=== PATIENT | female | born 1940 | race Caucasian/White ===

== ENCOUNTER → 2021-02-24 10:05 | Outpatient (CLI) | payer MEDICARE, SELFPAY ==
--- NOTE | ~2021-02-24 | XR_ITS ---
EXAMINATION: XR chest 2V DATE: 02/24/2021 10:19 INDICATION: Cough TECHNIQUE: PA and lateral views of the chest were obtained. 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 No focal airspace opacities, pulmonary ed chelsea, pleural effusion or pneumothorax. The cardiomediastinal silhouette is normal. Mild thoracic spon dylosis. IMPRESSION: 1. No acute cardiopulmonary disease. Reviewed, dictated and finalized at location A.
== END ==
PROVIDERS: PCP Family Medicine; Visit Provider Nurse Practitioner Family
DX: M47.814 Spondylosis without myelopathy or radiculopathy, thoracic region (principal); R05.9 Cough, unspecified
CPT/HCPCS: 71046

== ENCOUNTER 2021-05-08 20:15 | Emergency (ER) | payer MEDICARE, SELFPAY ==
--- NOTE | ~2021-05-08 | XR_ITS ---
EXAMINATION: XR chest 2V DATE: 05/09/2021 00:30 INDICATION: Cough. TECHNIQUE: Frontal and lateral views of the chest were obtained. COMPARISON: Chest 2 views 02/24/2021, chest CT 04/19/2014 FINDINGS: Again seen is eventration of anterior right hemidiaphragm. There are airspace opacities in the mid and lower lung zones. No pleural effusion or pneumothorax. The heart size is normal. IMPRESSION: 1. Airspace opacities in the mid and lower lung zones, consistent with atelectasis versus pneumonia. Reviewed, dictated and finalized at location A. VERY COACH IMPRESSION: 1. Airspace opacities in the mid and lower lung zones, consistent with atelecta sis versus pneumonia.
--- NOTE | ~2021-05-08 | CT_ITS ---
EXAMINATION: CT brain wo con DATE: 05/09/2021 00:25 INDICATION: Dizziness. TECHNIQUE: Computed tomography (CT) of the head was performed without intravenous contrast. The mA wa s adjusted according to patient size. Iterative reconstruction technique was employed. The dose-lengt h product was 756.67 mGy-cm. COMPARISON: Head CT 09/16/2017 FINDINGS: There are scattered areas of low attenuation in the cerebral white matter. There is no intr acranial hemorrhage, acute infarction, or abnormal intracranial mass lesion. The ventricles are odette l in size. There are likely changes of ocular lens replacement surgeries. There is mucosal thickening in the paranasal sinuses with thickening and sclerosis of the sinus morales, consistent with chronic s inusitis. There are changes of uncinectomies and ethmoidectomies. The mastoid air cells are normal. T here are periapical lucencies at the central maxillary incisors. IMPRESSION: 1. Worsened moderate nonspecific cerebral white matter disease, which likely represents chronic small vessel ischemic disease. 2. Chronic sinusitis. 3. Dental disease. Reviewed, dictated and finalized at location A. AGE HANDLING SUPERVISOR IMPRESSION: 1. Worsened moderate nonspecific cerebral white matter disease, which likely re presents chronic small vessel ischemic disease. 2. Chronic sinusitis. 3. Dental disease.
[2021-05-08 20:19] VITALS: BP 141/81; PULSE 96; RESP 17; TEMP 36.4; O2SAT 94
--- NOTE | 2021-05-08 20:21 | PC.NURSE ---
Kacy, pt [id number], would like to be called when pt gets back to a room. [phone].
[2021-05-08 22:56] VITALS: BP 145/67; PULSE 95; RESP 22; TEMP 36.3; O2SAT 92
--- NOTE | 2021-05-09 00:10 | ECG_ITS ---
Measurements Intervals [place] Rate: 78 P: 145 SC: 180 QRS: 220 QRSD: 169 T: 55 QT: 438 QTc: 500 Interpretive Statements SINUS RHYTHM ARM LEADS REVERSED LEFT ATRIAL ENLARGEMENT LEFT BUNDLE BRANCH BLOCK BASELINE ARTIFACT- I, II, III, AVL, AVF, V1-V6 ABNORMAL ECG Electronically Signed On 05-09-2021 6:21:09 PRINTER SLOTTER HELPER by Venkat Moncada D.O.
--- NOTE | 2021-05-09 00:14 | ED.WEAKNESS ---
HPI - Weakness General Chief complaint: Weakness Stated complaint: weakness, cough, dizziness Time Seen by Provider: 05/09/21 00:08 Source: patient Mode of arrival: ambulatory Limitations: no limitations History of Present Illness HPI Narrative: Patient is an 80-year-old female complaining of generalized weakness accompanied by nausea vomiting for the past 2 weeks. Patient also complaining of cough, productive, clear sputum for the past 2 months. Patient also states I think I have a UTI , having dysuria for the past week. Patient denies any chest pain, shortness of breath, abdominal pain, diarrhea, fever or chills. Related Data Allergies Allergy/AdvReac Type Severity Reaction Status Date / Time clavulanic acid Allergy Severe SAVANNAH Verified 05/08/21 20:23 MEGAN SYNDROME amoxicillin Allergy Unknown unk Verified 05/08/21 20:23 ampicillin Allergy Unknown unk Verified 05/08/21 20:23 Cephalosporins Allergy Unknown unk Verified 05/08/21 20:23 clarithromycin Allergy Unknown unk Verified 05/08/21 20:23 levofloxacin Allergy Unknown unk Verified 05/08/21 20:23 Penicillins Allergy Unknown unk Verified 05/08/21 20:23 AMOXICILLIN TRIHYDRATE Allergy Severe SAVANNAH Uncoded 02/23/21 13:10 MEGAN SYNDROME POTASSIUM CLAVULANATE Allergy Unknown ukn Uncoded 02/23/21 13:10 Review of Systems Review of Systems: All systems reviewed & are unremarkable except as noted in HPI and below Constitutional: Constitutional: Denies body ache(s), Denies chills, Denies excessive sweating, Denies fatigue, Denies fever(s), Denies headache(s), Denies lethargy, Denies malaise and Denies weight loss Eyes: Eyes: Denies blurry vision, Denies change in vision and Denies loss of vision ENT: Denies dizziness, Denies ear discharge, Denies headache(s), Denies lip swelling, Denies epistaxis, Denies nasal congestion, Denies neck pain, Denies throat swelling and Denies tongue swelling Cardiovascular: Cardiovascular: Denies chest pain, Denies chest pain at rest, Denies chest pain with activity, Denies diaphoresis, Denies rapid heart rate, Denies edema, Denies irregular heart rhythm, Denies lightheadedness, Denies palpitations, Denies dyspnea and Denies dyspnea on exertion Respiratory: Respiratory: Denies chest congestion, Denies hemoptysis, Denies dyspnea and Denies dyspnea on exertion Gastrointestinal: Gastrointestinal: Denies abdominal pain, Denies melena, Denies hematochezia, Denies diarrhea and Denies hematemesis Musculoskeletal: Musculoskeletal: Denies abnormal gait, Denies deformity, Denies joint swelling, Denies limited range of motion, Denies neck pain and Denies numbness Neurologic: Denies Abnormal speech present, Denies abnormal gait, Denies confusion, Denies dizziness, Denies headache(s), Denies focal weakness, Denies loss of vision, Denies numbness, Denies Other visual disturbances and Denies Sensory deficit (Neuro) Psychiatric: Psychiatric: Denies confusion, Denies depression, Denies auditory hallucinations, Denies homicidal ideation and Denies suicidal ideation Endocrine: Endocrine: Denies cold intolerance, Denies excessive sweating, Denies fatigue, Denies heat intolerance and Denies palpitations Hematologic/Lymphatic: Hematologic/Lymphatic: Denies easy bleeding and Denies easy bruising Allergic/Immunologic: Allergic/Immunologic: Denies lip swelling, Denies throat swelling and Denies tongue swelling [facility] Family History Family History Mother Cerebrovascular accident Father Family history of lung cancer Sibling Acute myocardial infarction Social History Social History Smoking status: Never smoker Second hand tobacco smoke exposure: No Alcohol intake: never Substance use: never Substance use type: does not use Gender identity (if verbalized by the patient): Female Comments Past medical history: Asthma, hypertension
[2021-05-09 00:32] VITALS: BP 141/75; PULSE 83; RESP 18; O2SAT 94
[2021-05-09 00:33] VITALS: PULSE 81
[2021-05-09] MEDS: LACTATED RINGERS 1,000 ML 999 ML IV CONT (00:47)
[2021-05-09 00:48] LABS: Basophils Percent Auto 0.2 % (0.2-1.2); Hematocrit 46.5 % (37.0-47.0); Hemoglobin 14.7 g/dL (12.0-15.0); Immature Granulocyte Absolute 0.04 K/mm3 (0.00-0.031); Immature Granulocyte Percent A 0.4 % (0-0.5); Lymphocytes Absolute Auto 1.57 K/mm3 (0.9-3.2); Lymphocytes Percent Auto 15.7 % (18.3-44.2); Mean Corpuscular HGB Conc 31.6 g/dl (32-36); Mean Corpuscular Volume 91.7 fl (80-100); Monocytes Absolute Auto 1.1 K/mm3 (0.1-0.6); Monocytes Percent Auto 10.5 % (2.6-8.5); Neutrophils Absolute Auto 7.3 K/mm3 (1.3-6.7); Neutrophils Percent Auto 73.2 % (45.5-73.1); Platelet Count Result 170 k/mm3 (150-375); Red Blood Count 5.07 M/mm3 (4.2-5.4); Red Cell Distribution Width 14.4 % (11.5-14.5)
[2021-05-09] MEDS: ONDANSETRON INJ 4 MG/2 ML VIAL IV PUSH (00:48)
[2021-05-09 01:08] LABS: Add Urine Microscopic? YES; Appearance Urine Cloudy (Clear); Bacteria Urine 2+ /hpf; Bilirubin Urine Negative (Negative); Color Urine Yellow (Yellow); Glucose Urine UA Negative (Negative); Ketones Urine Negative (Negative); Leukocyte Esterase Ur 3+ LEU/UL (Negative); Mucus Urine Heavy /lpf; Nitrate Urine Positive (Negative); Protein Urine 1+ mg/dL (Negative); Specific Grav Ur 1.014 (1.001-1.035); Squamous Epithelial Cell Urine Moderate /hpf (Few); Urobilinogen Urine Negative mg/dL (<2.0); WBC Urine 51-75 /hpf
[2021-05-09 01:09] LABS: Blood Urine Negative (Negative)
[2021-05-09 01:13] LABS: Alanine Aminotransferase 20 U/L (4-35); Albumin Level 4.1 g/dL (3.5-5.1); Alkaline Phosphatase 96 U/L (38-126); Anion Gap 11 mmol/L (8-16); Aspartate Amino Transferase 38 U/L (14-36); Bilirubin,Total 0.9 mg/dL (0.2-1.3); Blood Urea Nitrogen 24 mg/dL (7-17); Calcium 8.6 mg/dL (8.4-10.2); Carbon Dioxide 23 mmol/L (22-30); Chloride 103 mmol/L (98-107); Estimated CRCL calculation 49 ml/min; Estimated Glomerular Filt Rate 60; Glucose 128 mg/dL (65-110); Potassium 4.2 mmol/L (3.4-5.0); Sodium 137 mmol/L (137-145)
[2021-05-09 01:24] LABS: Troponin I 0.015 ng/mL (0.000-0.034)
[2021-05-09 01:42] VITALS: BP 145/77; PULSE 75; RESP 24; O2SAT 92
[2021-05-09 02:58] VITALS: BP 140/75; PULSE 72; RESP 18; O2SAT 94
== END 2021-05-09 02:58 | disposition home or self-care (01) ==
PROVIDERS: Emergency Provider Emergency Medicine; PCP Family Medicine
DX: N39.0 Urinary tract infection, site not specified (principal); R53.1 Weakness; J45.909 Unspecified asthma, uncomplicated; I10 Essential (primary) hypertension; I44.7 Left bundle-branch block, unspecified; R94.31 Abnormal electrocardiogram [ECG] [EKG]
CPT/HCPCS: 36415; 70450; 71046; 80053; 81001; 84484; 85025; 87086; 87088; 93005; 96361; 96365; 96375; 99284; J0696; J2405; J7120

== ENCOUNTER 2022-02-13 10:30 | Observation (INO) | payer MEDICARE, SELFPAY ==
[2022-02-13] VITALS (30 sets, daily range): BP systolic 119–155; BP diastolic 60–103; PULSE 73–113; RESP 13–25; TEMP 36.3–37.3; O2SAT 91–97; BMI 31.3
--- NOTE | ~2022-02-13 | CT_ITS ---
EXAMINATION: CT brain wo con INDICATION: Vertigo COMPARISON: 05/09/2021 TECHNIQUE: Standard unenhanced head CT. The dose-length product (DLP) was 605.33 mGy-cm. The mA was a djusted according to patient size. Iterative reconstruction technique was employed. FINDINGS: There is no acute intraparenchymal hemorrhage. No evidence of mass lesion. No evidence of a cute infarction. There is mild periventricular and subcortical hypodensity probably related to small vessel ischemic disease. There is mild prominence of the sulci and ventricles related to cerebral atr ophy. Intracranial calcified cerebral atherosclerosis is noted. There are no extra-axial collections. There is no mass effect or midline shift. Changes in the globes are likely from ocular lens surgery. There is mild mucosal thickening of the paranasal sinuses. IMPRESSION: 1. No acute intracranial abnormality. 2. Age related findings. Reviewed, dictated and finalized at location A.
[2022-02-13 11:01] LABS: Basophils Percent Auto 0.2 % (0.2-1.2); Eosinophils Absolute Auto 0.1 K/mm3 (0-0.3); Eosinophils Percent Auto 0.6 % (0-4.4); Hematocrit 49.9 % (37.0-47.0); Hemoglobin 15.8 g/dL (12.0-15.0); Immature Granulocyte Absolute 0.05 K/mm3 (0.00-0.031); Immature Granulocyte Percent A 0.4 % (0-0.5); Lymphocytes Absolute Auto 0.61 K/mm3 (0.9-3.2); Lymphocytes Percent Auto 4.7 % (18.3-44.2); Mean Corpuscular HGB Conc 31.7 g/dl (32-36); Mean Corpuscular Hemoglobin 29.4 pg (26-34); Mean Corpuscular Volume 92.8 fl (80-100); Mean Platelet Volume 9.8 fl (7.4-10.4); Monocytes Percent Auto 7.8 % (2.6-8.5); Neutrophils Absolute Auto 11.1 K/mm3 (1.3-6.7); Neutrophils Percent Auto 86.3 % (45.5-73.1); Platelet Count Result 228 k/mm3 (150-375); Red Blood Count 5.38 M/mm3 (4.2-5.4); Red Cell Distribution Width 14.1 % (11.5-14.5); White Blood Count 12.9 K/mm3 (4.5-10.0)
[2022-02-13 11:24] LABS: Hypochromasia 1+ (NORMAL); Platelet Estimate Adequate (Adequate); Schistocytes None Seen (NORMAL)
[2022-02-13 11:25] LABS: Alanine Aminotransferase 29 U/L (6-35); Albumin Level 4.5 g/dL (3.5-5.1); Alkaline Phosphatase 117 U/L (38-126); Anion Gap 11 mmol/L (8-16); Aspartate Amino Transferase 46 U/L (14-36); Bilirubin,Total 1.5 mg/dL (0.2-1.3); Blood Urea Nitrogen 20 mg/dL (7-17); Calcium 9.5 mg/dL (8.4-10.2); Carbon Dioxide 23 mmol/L (22-30); Chloride 106 mmol/L (98-107); Estimated CRCL calculation 42 ml/min; Estimated Glomerular Filt Rate 48; Glucose 145 mg/dL (65-110); Lipase 97 U/L (23-300); Potassium 4.1 mmol/L (3.4-5.0); Sodium 140 mmol/L (137-145)
[2022-02-13 12:28] LABS: Add Urine Microscopic? YES; Appearance Urine Clear (Clear); Bilirubin Urine Negative (Negative); Blood Urine 1+ (Negative); Color Urine Yellow (Yellow); Glucose Urine UA Negative (Negative); Ketones Urine Negative (Negative); Leukocyte Esterase Ur 2+ LEU/UL (Negative); Mucus Urine Rare /lpf; Nitrate Urine Negative (Negative); Protein Urine Negative (Negative); Specific Grav Ur 1.012 (1.001-1.035); Squamous Epithelial Cell Urine Rare /hpf (Few); Urobilinogen Urine Negative mg/dL (<2.0); WBC Urine 31-50 /hpf
--- NOTE | 2022-02-13 12:45 | ED.DIZZY ---
HPI - Dizziness General Chief Complaint: Dizziness Stated Complaint: dizziness, n/v Time Seen by Provider: 02/13/22 11:47 History of Present Illness HPI Narrative: Patient is an 81-year-old female with a history of hypertension, hyperlipidemia, CAD presenting with generalized weakness. Patient states that for the last 6 days she has had constant nausea with intermittent vomiting. States that she has a history of vertigo but it has been increasingly severe over the last 5 days. Patient states that she has a history of recurrent UTIs and her primary care provider started her on antibiotics yesterday. Unfortunately, her symptoms have continued and patient states that she was unable to even stand. States that she is unable to walk at home due to this generalized weakness. Patient denies headache, vision changes, numbness or weakness, chest pain, shortness of breath, cough, abdominal pain, diarrhea, leg swelling. Related Data Allergies Allergy/AdvReac Type Severity Reaction Status Date / Time amoxicillin Allergy Severe TORRES Verified 02/13/22 13:04 MEGAN SYNDROME clavulanic acid Allergy Severe SAVANNAH Verified 02/13/22 10:35 MEGAN SYNDROME ampicillin Allergy Unknown unk Verified 02/13/22 10:35 Cephalosporins Allergy Unknown unk Verified 02/13/22 10:35 clarithromycin Allergy Unknown unk Verified 02/13/22 10:35 levofloxacin Allergy Unknown unk Verified 02/13/22 10:35 Penicillins Allergy Unknown unk Verified 02/13/22 10:35 Review of Systems Review of Systems: All systems reviewed & are unremarkable except as noted in HPI and below PMFSH Past Medical History Medical History (Updated 02/16/22 @ 19:34 by Lavern Patel MD) Blind left eye Depression with anxiety Diabetes Elevated blood pressure reading Essential hypertension Hx of long-term (current) use of anticoagulants Hx of Torres-Megan toxic epidermal necrolysis overlap syndrome Personal history of pulmonary embolism Surgical History Surgical History (Updated 02/13/22 @ 21:12 by Judith Joseph NP) H/O eye surgery H/O foot surgery History of carpal tunnel release History of injection of tarsal tunnel History of lung surgery History of partial hysterectomy Hx of cataract extraction Family History Family History Mother Cerebrovascular accident Father Family history of lung cancer Sibling Acute myocardial infarction Social History Social History (Updated 02/13/22 @ 21:14 by Judith Joseph NP) Social History: the patient has been for 60 years. She does not use any alcohol and does not smoke. She has 4 children. She retired from the [employer]. Her is the durable power finance attorney for healthcare. Code status full code. Smoking status: Never smoker Second hand tobacco smoke exposure: No Alcohol intake: never Substance use: never Substance use type: does not use Gender identity (if verbalized by the patient): Female Spiritual care concerns: No Exam Narrative: GENERAL: Well-appearing, well-nourished, and in no acute distress. HEAD: Normocephalic, atraumatic. EYES: PERRLA and EOMI. ENT: Nares clear, no rhinorrhea or epistaxis. Mucous membranes dry. NECK: Supple. CHEST: Clear to auscultation. No respiratory distress. HEART: Regular rate and rhythm. No murmur heard. Normal peripheral pulses. ABDOMEN: Soft, nontender, nondistended, normal active bowel sounds. EXTREMITIES: Normal range of motion. No edema. SKIN: Warm, dry, no rash. NEURO: No focal deficits. Alert and oriented x3. PSYCH: Normal mood and affect. Course Course Emergency Course: Patient is an 81-year-old female presenting with generalized weakness. On arrival, patient is tachycardic, otherwise vitals are within normal limits. Exam is remarkable for the above. Patient is dehydrated on labs. There is a leukocytosis. UA shows UTI. Patient is receivi
[2022-02-13] MEDS: ONDANSETRON INJ 4 MG/2 ML VIAL IV PUSH (13:21)
[2022-02-13] MEDS: SODIUM CHLORIDE 0.9% IV 1,000 ML 999 ML IV CONT (13:21)
[2022-02-13 14:06] LABS: SARS-CoV-2 RNA PCR Negative
--- NOTE | 2022-02-13 17:45 | PC.NURSE ---
patient complaining that she has been in the er for too long and that this RN is trying my patience . patient requesting to speak to a supervisor propellant charge loading. charge nurse sent in to speak with patient
--- NOTE | 2022-02-13 18:44 | ADMGEN ---
This patient, Gifty Garcia, was admitted to Medical Room 341-01. Patient/family oriented to hospital policies and general routines including ID bracelet, bed and alarms, visiting hours, pain management, procedures, bathroom and other care routines, personal items, smoking policy, room service/diet, and visiting hours. Information on how to activate the Rapid Response Team has been discussed. Patient/Family are encouraged to report perceived risks to care and to ask questions if they do not understand what they are told or what they should do.
[2022-02-13] MEDS: SODIUM CHLORIDE 0.9% IV 1,000 ML 125 ML IV CONT (18:52)
--- NOTE | 2022-02-13 21:04 | PM.IMHP ---
H&P: HPI History of Present Illness Date/Time: 02/13/22 21:04 Chief Complaint: dizziness with nausea and vomiting Narrative: this is a 81-year-old female patient who has a history of hypertension, hyperlipidemia and coronary artery disease. She presented to the emergency room with some generalized weakness. The patient stated that she has had frequent UTIs. She states over the last 60 she has had constant nausea with intermittent vomiting. The patient stated that she has a history of vertigo but it has been getting increasingly severe over the last 5 days. The patient had been started on Macrobid for her urinary tract infection yesterday. The patient stated that she became so weak that she could not even stand. 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 She has no chest pain or shortness of breath. No fever chills. Her white count was noted to be 12.9. H&H is 15.8 and 49.9. Patient's creatinine was noted to be 1.10 and earlier this year was normal. GFR is 48. Random glucose is 145. Total bilirubin 1.5 an AST is 46. The patient was found to be negative for COVID and was positive for urinary tract infection. The patient is being admitted to observation status on the date of service of 02/13/2022. Review of Systems Review of Systems: See HPI All systems reviewed & are unremarkable except as noted in HPI and below Constitutional: Constitutional: Reports as per HPI and Reports no additional constitutional complaints Eyes: Eyes: Reports as per HPI and Reports no additional eye complaints ENT: Reports system reviewed and no additional complaints, except as documented and Reports Normal hearing present Cardiovascular: Cardiovascular: Reports no additional cardiovascular complaints Respiratory: Respiratory: Reports no additional respiratory complaints and Reports no additional respiratory complaints Gastrointestinal: Gastrointestinal: Reports as per HPI and Reports no additional gastrointestinal complaints Musculoskeletal: Musculoskeletal: Reports no additional musculoskeletal complaints Integumentary/Breasts: Skin/Breast: Reports system reviewed and no additional complaints, except as docu and Reports as per HPI Neurologic: Reports system reviewed and no additional complaints, except as documented, Reports as per HPI and Reports Normal hearing present Psychiatric: Psychiatric: Reports no additional psychiatric complaints and Reports as per HPI Endocrine: Endocrine: Reports no additional endocrine complaints Hematologic/Lymphatic: Hematologic/Lymphatic: Reports no additional hematologic/lymphatic complaints Allergic/Immunologic: Allergic/Immunologic: Reports no additional allergic/immunologic complaints PMFSH Past Medical History Medical History (Updated 02/13/22 @ 21:19 by Judith Joseph NP) Blind left eye Depression with anxiety Diabetes Elevated blood pressure reading Essential hypertension Hx of long-term (current) use of anticoagulants Hx of Kc-Kevin toxic epidermal necrolysis overlap syndrome Personal history of pulmonary embolism Surgical History Surgical History (Updated 02/13/22 @ 21:12 by Judith Joseph NP) H/O eye surgery H/O foot surgery History of carpal tunnel release History of injection of tarsal tunnel History of lung surgery History of partial hysterectomy Hx of cataract extraction Family History Family History Mother Cerebrovascular accident Father Family history of lung cancer Sibling Acute myocardial infarction Social History Social History (Updated 02/13/22 @ 21:14 by Judith Joseph NP) Social History: the patient has been for 60 years. She does not use any alcohol and does not smoke. She has 4 children. She retired from the [employer]. Her is the durable power city attorney for healthcare. Code status full code. Smoking s
[2022-02-14 04:54] VITALS: BP 129/80; PULSE 67; RESP 18; TEMP 36.2; O2SAT 97
[2022-02-14 06:07] LABS: Basophils Percent Auto 0.2 % (0.2-1.2); Eosinophils Absolute Auto 0.1 K/mm3 (0-0.3); Hematocrit 44.4 % (37.0-47.0); Hemoglobin 13.6 g/dL (12.0-15.0); Immature Granulocyte Absolute 0.01 K/mm3 (0.00-0.031); Immature Granulocyte Percent A 0.2 % (0-0.5); Lymphocytes Absolute Auto 0.97 K/mm3 (0.9-3.2); Lymphocytes Percent Auto 17.9 % (18.3-44.2); Mean Corpuscular HGB Conc 30.6 g/dl (32-36); Mean Corpuscular Hemoglobin 29.4 pg (26-34); Mean Corpuscular Volume 96.1 fl (80-100); Mean Platelet Volume 10.2 fl (7.4-10.4); Monocytes Absolute Auto 0.7 K/mm3 (0.1-0.6); Monocytes Percent Auto 12.4 % (2.6-8.5); Neutrophils Absolute Auto 3.6 K/mm3 (1.3-6.7); Neutrophils Percent Auto 67.3 % (45.5-73.1); Platelet Count Result 179 k/mm3 (150-375); Red Blood Count 4.62 M/mm3 (4.2-5.4); Red Cell Distribution Width 14.1 % (11.5-14.5); White Blood Count 5.4 K/mm3 (4.5-10.0)
[2022-02-14 06:22] LABS: Lactic Acid Reflex 0.9 mmol/L (0.7-2.0)
[2022-02-14 06:23] LABS: Alanine Aminotransferase 23 U/L (6-35); Albumin Level 3.7 g/dL (3.5-5.1); Alkaline Phosphatase 82 U/L (38-126); Anion Gap 7 mmol/L (8-16); Aspartate Amino Transferase 32 U/L (14-36); Bilirubin,Total 1.1 mg/dL (0.2-1.3); Blood Urea Nitrogen 20 mg/dL (7-17); Calcium 8.4 mg/dL (8.4-10.2); Carbon Dioxide 26 mmol/L (22-30); Chloride 107 mmol/L (98-107); Estimated CRCL calculation 51 ml/min; Estimated Glomerular Filt Rate 60; Glucose 96 mg/dL (65-110); Magnesium 1.9 mg/dL (1.6-2.3); Potassium 3.9 mmol/L (3.4-5.0); Sodium 140 mmol/L (137-145)
[2022-02-14] MEDS: MECLIZINE HCL 25 MG TABLET PO ×2 (08:08→17:12)
[2022-02-14] MEDS: ASPIRIN 81 MG ENTERIC TABLET PO (08:08)
[2022-02-14] MEDS: SODIUM CHLORIDE 0.9% IV 1,000 ML 125 ML IV CONT (08:19)
[2022-02-14 14:00] VITALS: BP 115/58; PULSE 67; RESP 16; TEMP 36.6; O2SAT 92
--- NOTE | 2022-02-14 18:17 | PM.IMPN ---
Progress Note: A&P Assessment and Plan (1) Dizziness: Code(s): R42 - Dizziness and giddiness Status: Acute Assessment and Plan: Symptoms significantly improved on meclizine, appreciate PT/OT, discontinue IV fluids and monitor on oral hydration, anticipate discharge home tomorrow symptoms continue to be resolved off IV fluids and on meclizine (2) Dehydration: Code(s): E86.0 - Dehydration Status: Acute Assessment and Plan: Appears resolved (3) UTI (urinary tract infection): Code(s): N39.0 - Urinary tract infection, site not specified Status: Acute Assessment and Plan: Discontinue Rocephin, follow up urine culture, do not suspect UTI Plan DVT prophylaxis with SCDs GI prophylaxis not indicated Code status full code Subjective Date/time seen: 02/14/22 18:17 Interval history: No overnight events noted. No chest pain or shortness of breath. No nausea, vomiting or diarrhea. No fevers or chills. Patient states her dizziness is much improved. She denies dysuria, suprapubic tenderness or hematuria. Review of Systems Review of Systems: 12 point review of systems was assessed and was negative except as noted in the HPI Exam Narrative: General: No acute distress, alert and oriented per baseline HEENT: Atraumatic, normocephalic, mucous membranes moist CV: Regular rate and rhythm, S1, S2 Lungs: Clear to auscultation bilaterally, no rales or crackles noted, no wheezes, good air entry Abdomen: Soft, nontender, nondistended Extremities: Normal to inspection Skin: No rashes noted, no lesions or wounds seen Psych: Euthymic, normal affect Objective Data Vital Signs Vital Signs: Vital Signs - 24 hr 02/13/22 18:34 02/13/22 19:20 02/13/22 20:00 Temperature 97.3 F L 97.8 F Pulse Rate 79 73 Respiratory Rate 18 18 Blood Pressure 139/60 152/74 H Pulse Oximetry 95 93 Oxygen Delivery Room Air 02/14/22 04:54 02/14/22 09:01 02/14/22 09:20 Temperature 97.2 F L Pulse Rate 67 Respiratory Rate 18 Blood Pressure 129/80 Pulse Oximetry 97 Oxygen Delivery Room Air Room Air 02/14/22 08:00 02/14/22 14:00 Temperature 97.9 F Pulse Rate 67 Respiratory Rate 16 Blood Pressure 115/58 L Pulse Oximetry 92 Oxygen Delivery Room Air Intake/Output Intake/Output: Intake & Output 02/11/22 02/12/22 02/13/22 02/14/22 23:59 23:59 23:59 23:59 Intake Total 1050 2280 Output Total 450 Balance 600 2280 Meds/Results Medications: Active Medications Generic Name Dose Route Start Last Admin Trade Name Freq PRN Reason Stop Dose Admin Albuterol 1 puff 02/13/22 21:15 Albuterol Sulfate (*Sp) Aerosol 1 Puff INHALATION Q4H PRN shortness of breath or wheezing Aspirin 81 mg 02/14/22 09:00 02/14/22 08:08 Aspirin 81 Mg Enteric Tablet PO 81 mg DAILY TRISTIN Administration Meclizine HCl 25 mg 02/14/22 18:00 02/14/22 17:12 Meclizine Hcl 25 Mg Tablet PO 25 mg Q6HR TRISTIN Administration Ondansetron HCl 4 mg 02/13/22 21:15 Ondansetron Inj 4 Mg/2 Ml Vial IV PUSH Q4H PRN Nausea And Vomiting Radiology Results: ITS Impressions Head CT 02/13/22 13:21 IMPRESSION: 1. No acute intracranial abnormality. 2. Age related findings. Labs Labs: Laboratory Results - last 24 hr 02/14/22 02/14/22 02/14/22 05:37 05:37 05:37 WBC 5.4 RBC 4.62 Hgb 13.6 Hct 44.4 MCV 96.1 MCH 29.4 MCHC 30.6 L RDW 14.1 Plt Count 179 MPV 10.2 Immature Gran % (Auto) 0.2 Neut % (Auto) 67.3 Lymph % (Auto) 17.9 L [place] % (Auto) 12.4 H Eos % (Auto) 2.0 Baso % (Auto) 0.2 Lymph # (Auto) 0.97 [place] # (Auto) 0.7 H Eos # (Auto) 0.1 Baso # (Auto) 0.0 Abs Immat Gran (auto) 0.01 Absolute Neuts (auto) 3.6 Absolute Nucleated RBC 0.0 Nucleated RBC % 0.0 Sodium 140 Potassium 3.9 Chloride 107 Carbon Dioxide 26 Anion Gap 7 L
[2022-02-14 21:37] VITALS: BP 125/47; PULSE 65; RESP 20; TEMP 36.8; O2SAT 96
[2022-02-15] MEDS: MECLIZINE HCL 25 MG TABLET PO ×3 (00:21→12:36)
--- NOTE | 2022-02-15 00:44 | PC.NURSE ---
Pt reports some dizziness with changing position. Pt up with walker and was steady while walking. Pt had no reports of dizziness while ambulating. Pt has no complaints at this time. Will continue to monitor pt.
[2022-02-15 06:00] VITALS: BP 116/56; PULSE 63; RESP 16; TEMP 36.5; O2SAT 95
[2022-02-15 06:31] LABS: Basophils Percent Auto 0.4 % (0.2-1.2); Eosinophils Absolute Auto 0.2 K/mm3 (0-0.3); Eosinophils Percent Auto 3.9 % (0-4.4); Hematocrit 44.8 % (37.0-47.0); Hemoglobin 14.1 g/dL (12.0-15.0); Immature Granulocyte Absolute 0.02 K/mm3 (0.00-0.031); Immature Granulocyte Percent A 0.4 % (0-0.5); Lymphocytes Absolute Auto 1.62 K/mm3 (0.9-3.2); Lymphocytes Percent Auto 29.9 % (18.3-44.2); Mean Corpuscular HGB Conc 31.5 g/dl (32-36); Mean Corpuscular Hemoglobin 29.8 pg (26-34); Mean Corpuscular Volume 94.7 fl (80-100); Mean Platelet Volume 10.3 fl (7.4-10.4); Monocytes Absolute Auto 0.7 K/mm3 (0.1-0.6); Monocytes Percent Auto 13.7 % (2.6-8.5); Neutrophils Absolute Auto 2.8 K/mm3 (1.3-6.7); Neutrophils Percent Auto 51.7 % (45.5-73.1); Platelet Count Result 200 k/mm3 (150-375); Red Blood Count 4.73 M/mm3 (4.2-5.4); Red Cell Distribution Width 13.8 % (11.5-14.5); White Blood Count 5.4 K/mm3 (4.5-10.0)
[2022-02-15 06:50] LABS: Alanine Aminotransferase 24 U/L (6-35); Albumin Level 3.8 g/dL (3.5-5.1); Alkaline Phosphatase 82 U/L (38-126); Anion Gap 9 mmol/L (8-16); Aspartate Amino Transferase 33 U/L (14-36); Blood Urea Nitrogen 25 mg/dL (7-17); Calcium 8.7 mg/dL (8.4-10.2); Carbon Dioxide 24 mmol/L (22-30); Chloride 108 mmol/L (98-107); Estimated CRCL calculation 51 ml/min; Estimated Glomerular Filt Rate 60; Glucose 90 mg/dL (65-110); Potassium 4.1 mmol/L (3.4-5.0); Sodium 141 mmol/L (137-145)
[2022-02-15] MEDS: ASPIRIN 81 MG ENTERIC TABLET PO (09:05)
--- NOTE | 2022-02-15 09:45 | PM.DS ---
DS: Admitting Diagnosis Discharge Date February 15, 2022 Admitting Diagnosis Generalized weakness, dizziness DS: Discharge Diagnosis Discharge Diagnosis (1) Dizziness: Code(s): R42 - Dizziness and giddiness Status: Acute Assessment and Plan: Symptoms significantly improved on meclizine, appreciate PT/OT, discontinue IV fluids and monitor on oral hydration, anticipate discharge home tomorrow symptoms continue to be resolved off IV fluids and on meclizine (2) Dehydration: Code(s): E86.0 - Dehydration Status: Acute Assessment and Plan: Appears resolved (3) UTI (urinary tract infection): Code(s): N39.0 - Urinary tract infection, site not specified Status: Acute Assessment and Plan: Discontinue Rocephin, follow up urine culture, do not suspect UTI Plan DVT prophylaxis with SCDs GI prophylaxis not indicated Code status full code DS: Summary Hospital Course Hospital Course: 81-year-old female with past medical history of hypertension, hyperlipidemia, coronary disease recurrent UTIs presenting with generalized weakness, nausea, vomiting and vertigo. Urinalysis was mildly abnormal, urine culture was sent and was essentially negative for infection. Upon further evaluation, the vertigo seemed to be the cause of all of her symptoms. Therefore, patient was started on meclizine and evaluated by PT/OT. Her symptoms completely resolved and she was discharged home in good condition on meclizine with outpatient follow-up by her PCP. Time Spent with Patient Time attestation: Total time spent providing and/or coordinating discharge services: Exam Narrative: General: No acute distress, alert and oriented per baseline HEENT: Atraumatic, normocephalic, mucous membranes moist CV: Regular rate and rhythm, S1, S2 Lungs: Clear to auscultation bilaterally, no rales or crackles noted, no wheezes, good air entry Abdomen: Soft, nontender, nondistended Extremities: Normal to inspection Skin: No rashes noted, no lesions or wounds seen Psych: Euthymic, normal affect DS: Data Data Completed and Pending Labs on day of discharge: Labs from last 24 hours 02/15/22 02/15/22 06:00 06:00 WBC 5.4 RBC 4.73 Hgb 14.1 Hct 44.8 MCV 94.7 MCH 29.8 MCHC 31.5 L RDW 13.8 Plt Count 200 MPV 10.3 Immature Gran % (Auto) 0.4 Neut % (Auto) 51.7 Lymph % (Auto) 29.9 [place] % (Auto) 13.7 H Eos % (Auto) 3.9 Baso % (Auto) 0.4 Lymph # (Auto) 1.62 [place] # (Auto) 0.7 H Eos # (Auto) 0.2 Baso # (Auto) 0.0 Abs Immat Gran (auto) 0.02 Absolute Neuts (auto) 2.8 Absolute Nucleated RBC 0.0 Nucleated RBC % 0.0 Sodium 141 Potassium 4.1 Chloride 108 H Carbon Dioxide 24 Anion Gap 9 BUN 25 H Creatinine 0.90 Estim Creat Clear Calc 51 Estimated GFR 60 Glucose 90 Calcium 8.7 Total Bilirubin 1.0 AST 33 ALT 24 Alkaline Phosphatase 82 Total Protein 7.0 Albumin 3.8 Preliminary micro results at discharge 02/13/22 22:27 Blood Culture - Preliminary Blood 02/13/22 22:27 Blood Culture - Preliminary Blood Discharge Plan Discharge Attending physician on discharge: Whitney Dooley Discharging Clinician: Whitney Dooley Patient Disposition: Home, Self-Care Activity: as tolerated Diet: as tolerated Patient Instructions: Antibiotic Form, Urinary Tract Infection in Women (DC), Pain Management in Older Adults (DC) Stand Alone Forms: General Discharge Information Follow-up/Referrals: Cristiano Carrasco MD [Primary Care Provider] - Discharge Medications: New meclizine 25 mg Tablet 25 mg PO Q6HR 30 Days Qty: 120 0RF Continued aspirin 81 mg tablet,delayed release (DR/EC) 81 mg PO DAILY Qty: 1 0RF albuterol sulfate [Ventolin HFA] 90 mcg/actuation HFA aerosol inhaler 1 inh inhalation Q4H PRN (Reason: shortness of breath or wheezing) Qty: 18 1RF Discontinued nitrofurant
== END 2022-02-15 13:13 | disposition home or self-care (01) ==
LOC: ANHED 11:47 → ANH3MED 20:03 → ANH3MEDSUR 02-14 10:54 → ANH3MED 02-16 10:41 → ANH3MEDSUR 02-16 10:41
PROVIDERS: Nurse Practitioner; Admitting Provider Internal Medicine; Emergency Provider Emergency Medicine; PCP Family Medicine; Visit Provider Student in an Organized Health Care Education/Training Program
DX: R42 Dizziness and giddiness (principal); E86.0 Dehydration; N39.0 Urinary tract infection, site not specified; I10 Essential (primary) hypertension; E78.5 Hyperlipidemia, unspecified; I25.10 Atherosclerotic heart disease of native coronary artery without angina pectoris; R53.1 Weakness; R11.2 Nausea with vomiting, unspecified; F41.8 Other specified anxiety disorders; R00.0 Tachycardia, unspecified; E11.9 Type 2 diabetes mellitus without complications; L51.3 Stevens-Johnson syndrome-toxic epidermal necrolysis overlap syndrome; H54.62 Unqualified visual loss, left eye, normal vision right eye; D72.829 Elevated white blood cell count, unspecified; Z20.822 Contact with and (suspected) exposure to COVID-19; Z86.711 Personal history of pulmonary embolism; Z79.01 Long term (current) use of anticoagulants; Z79.82 Long term (current) use of aspirin; Z79.51 Long term (current) use of inhaled steroids; Z79.899 Other long term (current) drug therapy; Z82.3 Family history of stroke; Z82.49 Family history of ischemic heart disease and other diseases of the circulatory system
CPT/HCPCS: 36415; 51701; 70450; 80053; 81001; 83605; 83690; 83735; 84443; 85025; 87040; 87086; 96361; 96365; 96375; 97116; 97161; 97165; 97530; 99285; A9270; C9803; G0378; J0696; J2405; J7030; U0003; U0005

== ENCOUNTER 2022-07-09 09:34 | Outpatient (CLI) | payer MEDICARE, SELFPAY ==
[2022-07-09 10:45] LABS: Hematocrit 48.9 % (37.0-47.0); Hemoglobin 15.3 g/dL (12.0-15.0); Mean Corpuscular HGB Conc 31.3 g/dl (32-36); Mean Corpuscular Hemoglobin 29.9 pg (26-34); Mean Corpuscular Volume 95.5 fl (80-100); Mean Platelet Volume 9.8 fl (7.4-10.4); Platelet Count Result 231 k/mm3 (150-375); Red Blood Count 5.12 M/mm3 (4.2-5.4); Red Cell Distribution Width 13.9 % (11.5-14.5); White Blood Count 5.7 K/mm3 (4.5-10.0)
[2022-07-09 10:50] LABS: Appearance Urine Cloudy (Clear); Bacteria Urine 4+ /hpf; Bilirubin Urine Negative (Negative); Blood Urine Trace (Negative); Color Urine Yellow (Yellow); Glucose Urine UA Negative (Negative); Ketones Urine Negative (Negative); Leukocyte Esterase Ur 3+ LEU/UL (NEGATIVE); Nitrate Urine Positive (Negative); Non Pathogenic Casts 0-2; Protein Urine Negative (Negative); RBC Urine 0-2 /hpf (0-2); Specific Grav Ur 1.013 (1.001-1.035); Squamous Epithelial Cell Urine None seen /hpf (Few); Urobilinogen Urine 0.2 mg/dL (<2.0); WBC Urine >100 /hpf (0-3)
[2022-07-09 10:55] LABS: Add Urine Microscopic? YES
[2022-07-09 11:22] LABS: Alanine Aminotransferase 22 U/L (6-35); Albumin Level 4.7 g/dL (3.5-5.1); Alkaline Phosphatase 89 U/L (38-126); Anion Gap 8 mmol/L (8-16); Aspartate Amino Transferase 33 U/L (14-36); Bilirubin,Total 0.9 mg/dL (0.2-1.3); Blood Urea Nitrogen 21 mg/dL (7-17); Calcium 9.8 mg/dL (8.4-10.2); Carbon Dioxide 28 mmol/L (22-30); Chloride 103 mmol/L (98-107); Estimated Glomerular Filt Rate 48; Glucose 110 mg/dL (65-110); Potassium 4.3 mmol/L (3.4-5.0); Sodium 139 mmol/L (137-145)
[2022-07-09 12:42] LABS: Hemoglobin A1C 5.2 % (<5.7)
== END 2022-07-09 09:35 | disposition home or self-care (01) ==
PROVIDERS: PCP Family Medicine; Visit Provider Family Medicine
DX: R73.01 Impaired fasting glucose (principal); I10 Essential (primary) hypertension
CPT/HCPCS: 36415; 80053; 81001; 83036; 84443; 85027

== ENCOUNTER 2023-04-14 05:51 | Inpatient (IN) | payer MEDICARE, SELFPAY ==
--- NOTE | ~2023-04-14 | XR_ITS ---
EXAMINATION: XR chest 2V Exam Date/Time: 04/14/2023 14:40 DIGITAL STRATEGY DIRECTOR HISTORY: cough Comparison: 05/09/2021. RESULT: Lines, tubes, and devices: None. Lungs and pleura: Left lower lung consolidation, partially silhouetting the left hemidiaphragm. Mild diffuse reticular opacities. Scattered granulomas. Cardiomediastinal silhouette: Stable. Other: No acute osseous or upper abdominal finding. IMPRESSION: Left lower lobe atelectasis/pneumonia. Mild interstitial edema. Reviewed, dictated and finalized at location K. TAL STRATEGY DIRECTOR
[2023-04-14 05:52] VITALS: BP 148/70; PULSE 84; RESP 25; TEMP 36.8; O2SAT 92
--- NOTE | 2023-04-14 05:56 | ECG_ITS ---
Measurements Intervals [place] Rate: 82 P: 31 NH: 197 QRS: -49 QRSD: 166 T: 120 QT: 433 QTc: 506 Interpretive Statements SINUS RHYTHM LEFT BUNDLE BRANCH BLOCK Electronically Signed On 04-14-2023 10:33:07 [employer] by Ulisses Craig M.D.
[2023-04-14 06:17] LABS: Appearance Urine Turbid (Clear); Bacteria Urine 4+ /hpf; Bilirubin Urine Negative (Negative); Blood Urine 1+ (Negative); Color Urine Yellow (Yellow); Glucose Urine UA Negative (Negative); Ketones Urine Trace mg/dL (Negative); Leukocyte Esterase Ur 2+ LEU/UL (Negative); Nitrate Urine Positive (Negative); Protein Urine 1+ mg/dL (Negative); Specific Grav Ur 1.015 (1.001-1.035); Squamous Epithelial Cell Urine None seen /hpf (Few); Urobilinogen Urine 0.2 mg/dL (<2.0); WBC Urine >100 /hpf
[2023-04-14 06:17] LABS: Basophils Percent Auto 0.2 % (0.2-1.2); Hematocrit 46.8 % (37.0-47.0); Hemoglobin 14.4 g/dL (12.0-15.0); Immature Granulocyte Absolute 0.03 K/mm3 (0.00-0.031); Immature Granulocyte Percent A 0.5 % (0-0.5); Lymphocytes Absolute Auto 0.39 K/mm3 (0.9-3.2); Lymphocytes Percent Auto 6.2 % (18.3-44.2); Mean Corpuscular HGB Conc 30.8 g/dl (32-36); Mean Corpuscular Hemoglobin 28.9 pg (26-34); Mean Corpuscular Volume 93.8 fl (80-100); Mean Platelet Volume 10.6 fl (7.4-10.4); Monocytes Absolute Auto 0.7 K/mm3 (0.1-0.6); Monocytes Percent Auto 11.8 % (2.6-8.5); Neutrophils Absolute Auto 5.1 K/mm3 (1.3-6.7); Neutrophils Percent Auto 81.3 % (45.5-73.1); Platelet Count Result 153 k/mm3 (150-375); Red Blood Count 4.99 M/mm3 (4.2-5.4); Red Cell Distribution Width 14.6 % (11.5-14.5); White Blood Count 6.3 K/mm3 (4.5-10.0)
[2023-04-14 06:20] LABS: Add Urine Microscopic? YES
[2023-04-14 06:28] LABS: Alanine Aminotransferase 33 U/L (6-35); Albumin Level 4.4 g/dL (3.5-5.1); Alkaline Phosphatase 108 U/L (38-126); Anion Gap 11 mmol/L (8-16); Aspartate Amino Transferase 54 U/L (14-36); Bilirubin,Total 0.9 mg/dL (0.2-1.3); Blood Urea Nitrogen 21 mg/dL (7-17); Carbon Dioxide 21 mmol/L (22-30); Chloride 107 mmol/L (98-107); Estimated Glomerular Filt Rate 53; Glucose 131 mg/dL (65-110); INR 1.1; Partial Thromboplastin Time 28.7 SECONDS (22.3-36.8); Potassium 3.8 mmol/L (3.4-5.0); Prothrombin Time 14.1 Seconds (11.1-14.7); Sodium 139 mmol/L (137-145)
[2023-04-14 07:05] VITALS: BP 138/60; PULSE 77; RESP 24; O2SAT 94
--- NOTE | 2023-04-14 07:43 | ED.WEAKNESS ---
HPI - Weakness General Chief complaint: Weakness Stated complaint: found down Time Seen by Provider: 04/14/23 07:17 Source: patient and family Limitations: no limitations History of Present Illness HPI Narrative: 82 years old white female came from home by ambulance, complaining of gradual progressive weakness over the last few days got worse yesterday, increased urination, patient was going to the bathroom, could not walk went down to the floor with weakness laid down on the floor for 3 hours, can not get her up to the floor, complaining of cold and warm feeling, and decreased urination, nausea, intermittent vomiting. Related Data Allergies Allergy/AdvReac Type Severity Reaction Status Date / Time amoxicillin Allergy Severe TORRES Verified 04/14/23 11:58 MEGAN SYNDROME clavulanic acid Allergy Severe SAVANNAH Verified 04/14/23 11:58 MEGAN SYNDROME ampicillin Allergy Unknown unk Verified 04/14/23 11:58 Cephalosporins Allergy Unknown unk Verified 04/14/23 11:58 clarithromycin Allergy Unknown unk Verified 04/14/23 11:58 levofloxacin Allergy Unknown unk Verified 04/14/23 11:58 Penicillins Allergy Unknown unk Verified 04/14/23 11:58 Review of Systems Review of Systems: All systems reviewed & are unremarkable except as noted in HPI and below PMFSH Past Medical History Medical History Aortic stenosis Blind left eye Depression with anxiety Diabetes Elevated blood pressure reading Essential hypertension Hx of long-term (current) use of anticoagulants Hx of Torres-Megan toxic epidermal necrolysis overlap syndrome Personal history of pulmonary embolism Surgical History Surgical History H/O eye surgery H/O foot surgery History of carpal tunnel release History of injection of tarsal tunnel History of lung surgery History of partial hysterectomy Hx of cataract extraction Family History Family History Mother Cerebrovascular accident Father Family history of lung cancer Sibling Acute myocardial infarction Social History Social History Social History: the patient has been for 60 years. She does not use any alcohol and does not smoke. She has 4 children. She retired from the [employer]. Her is the durable power power plant electrician for healthcare. Code status full code. Smoking status: Never smoker Second hand tobacco smoke exposure: No Alcohol intake: never Substance use: never Substance use type: does not use Lack of Transportation: No Lack of Food: Never True Current Housing: I Have Housing Concerned About Future Housing: No Difficulty Paying Gas/Electric Bills: No Difficulty Paying for Meds: No Currently Unemployed: No Education: High School Diploma/GED Difficulty w/ Childcare or Family Care: No Living arrangements: with family Occupation/Education: retired Gender identity (if verbalized by the patient): Female Spiritual care concerns: No Exam Narrative: General appearance: Well-developed, well-nourished , sick-looking Skin: Normal color Head: Normocephalic, nontraumatic Eyes: Clear conjunctiva ENT: Oropharynx normal, ears normal, nose normal Neck: Supple, nontender Chest and respiratory: Airway patent, no respiratory distress, no accessory muscle use Heart: Regular rate/rhythm Abdomen: Soft, nontender, no organomegaly, quiet bowel sounds Vascular: Normal peripheral pulses, normal capillary refill. Musculoskeletal: Normal range of motion, nontender back Neurologic: Alert and oriented ?3, APRON CLEANER is normal as tested, no gross motor deficit
[2023-04-14] MEDS: SODIUM CHLORIDE 0.9% IV 1,000 ML 999 ML IV CONT (08:48)
[2023-04-14] MEDS: SODIUM CHLORIDE 0.9% IV 1,000 ML 125 ML IV CONT ×2 (09:21→21:32)
[2023-04-14 09:22] VITALS: BP 143/66; PULSE 71; RESP 18; O2SAT 97
--- NOTE | 2023-04-14 10:35 | ADMGEN ---
This patient, Gifty Garcia, was admitted to 2 Medical Room 254-01. Patient/family oriented to hospital policies and general routines including ID bracelet, bed and alarms, visiting hours, pain management, procedures, bathroom and other care routines, personal items, smoking policy, room service/diet, and visiting hours. Information on how to activate the Rapid Response Team has been discussed. Patient/Family are encouraged to report perceived risks to care and to ask questions if they do not understand what they are told or what they should do.
[2023-04-14 10:40] VITALS: BP 142/57; PULSE 66; RESP 18; TEMP 37.1; O2SAT 93
[2023-04-14 11:43] VITALS: O2SAT 93
--- NOTE | 2023-04-14 13:24 | PM.IMHP ---
H&P: HPI History of Present Illness Date/Time: 04/14/23 13:24 Chief Complaint: Weakness, Cough, Dysuria Narrative: 82 y/o F presents here with weakness, cough, and dysuria with PMH of aortic stenosis, depression/anxiety, DM, HTN, SJS, and PE. Patient presents here with generalized weakness that began last night around around 0300. Patient was getting up to go to the restroom when she began to feel too weak to stand. Patient used wall and slid herself to the floor without injury or loss of consciousness. Unable to stand back up despite her 's help and was laying on the ground for 3-4 hours. Weakness was preceded by urinary frequency, malodorous urine, and urinary discoloration (dark/dark/cloudy) for past 2-3 weeks. Patient was unable to seek care for herself due to her being sick and who was also recently hospitalized. In addition to the urinary symptoms, patient developed a dry cough 3 days ago that is accompanied by increased body aches and intermittent non-bloody diarrhea. She denies fever or chills. Reports intermittent chest tightness that is brief past few years, none currently. No focal deficits, numbness, changes speech, or facial droop. Review of Systems Review of Systems: All systems reviewed & are unremarkable except as noted in HPI and below PMFSH Past Medical History Medical History (Updated 04/14/23 @ 18:25 by Talisha Rogers APRN) Aortic stenosis Blind left eye Depression with anxiety Diabetes Diverticulosis of large intestine without hemorrhage Elevated blood pressure reading Essential hypertension Hx of long-term (current) use of anticoagulants Hx of Torres-Kevin toxic epidermal necrolysis overlap syndrome Internal hemorrhoids Personal history of pulmonary embolism Surgical History Surgical History H/O eye surgery H/O foot surgery History of carpal tunnel release History of injection of tarsal tunnel History of lung surgery History of partial hysterectomy Hx of cataract extraction Family History Family History Mother Cerebrovascular accident Father Family history of lung cancer Sibling Acute myocardial infarction Social History Social History Social History: the patient has been for 60 years. She does not use any alcohol and does not smoke. She has 4 children. She retired from the [employer]. Her is the durable power family law attorney for healthcare. Code status full code. Smoking status: Never smoker Second hand tobacco smoke exposure: No Alcohol intake: never Substance use: never Substance use type: does not use Lack of Transportation: No Lack of Food: Never True Current Housing: I Have Housing Concerned About Future Housing: No Difficulty Paying Gas/Electric Bills: No Difficulty Paying for Meds: No Currently Unemployed: No Education: High School Diploma/GED Difficulty w/ Childcare or Family Care: No Living arrangements: with family Occupation/Education: retired Gender identity (if verbalized by the patient): Female Spiritual care concerns: No Meds Home Medications and Allergies Home Medications Medication Instructions Recorded Confirmed Type aspirin 81 mg tablet,delayed 81 mg PO DAILY #1 tablet 03/01/20 04/14/23 Rx release albuterol sulfate 90 mcg/actuation 1 inh inhalation Q4H PRN shortness 09/26/22 04/14/23 Rx aerosol inhaler (Ventolin HFA) of breath or wheezing #18 grams Allergies Allergy/AdvReac Type Severity Reaction Status Date / Time amoxicillin Allergy Severe TORRES Verified 04/14/23 11:58 KEVIN SYNDROME clavulanic acid Allergy Severe SAVANNAH Verified 04/14/23 11:58 KEVIN SYNDROME ampicillin Allergy Unknown unk Verified 04/14/23 11:58 Cephalosporins Allergy Unknown unk Verified
[2023-04-14 15:53] LABS: Influenza A QL RT-PCR Negative (Negative); Influenza B QL RT-PCR Negative (Negative); RSV RNA, RT-PCR Negative (Negative); SARS-CoV-2 RNA PCR Positive (Negative)
[2023-04-14] MEDS: BENZONATATE 100 MG CAPSULE PO (17:58)
[2023-04-14] MEDS: ACETAMINOPHEN 325 MG TABLET 650 MG PO (17:58)
[2023-04-14] MEDS: REMDESIVIR 200 MG/NS 250 ML 200 MG/250 ML BAG 250 MG IVPB (19:00)
[2023-04-14 19:44] VITALS: BP 125/60; PULSE 67; RESP 18; TEMP 36.9; O2SAT 91
[2023-04-14 21:07] LABS: CRP 0.7 mg/dL (<1.0)
[2023-04-14 21:19] LABS: Erythrocyte Sedimentation Rate 24 mm/hr (0-20)
[2023-04-14] MEDS: HEPARIN SODIUM 5,000 UNITS/ML VIAL 5000 UNITS SUB-Q (21:27)
[2023-04-15] VITALS: BP 117/54; PULSE 59; RESP 18; TEMP 36.6; O2SAT 95
[2023-04-15] MEDS: VANCOMYCIN 1,250 MG/NS 250 ML 1,250 MG/250 ML BAG 166.67 MG IVPB (01:29)
[2023-04-15] MEDS: VANCOMYCIN 1,000 MG/NS 250 ML 1,000 MG/250 ML BAG 250 MG IVPB (03:15)
[2023-04-15 05:31] LABS: Basophils Percent Auto 0.3 % (0.2-1.2); Hematocrit 42.3 % (37.0-47.0); Immature Granulocyte Absolute 0.02 K/mm3 (0.00-0.031); Immature Granulocyte Percent A 0.6 % (0-0.5); Lymphocytes Absolute Auto 0.74 K/mm3 (0.9-3.2); Lymphocytes Percent Auto 23.3 % (18.3-44.2); Mean Corpuscular HGB Conc 30.7 g/dl (32-36); Mean Corpuscular Hemoglobin 29.2 pg (26-34); Mean Corpuscular Volume 95.1 fl (80-100); Mean Platelet Volume 10.2 fl (7.4-10.4); Monocytes Absolute Auto 0.6 K/mm3 (0.1-0.6); Monocytes Percent Auto 19.2 % (2.6-8.5); Neutrophils Absolute Auto 1.8 K/mm3 (1.3-6.7); Neutrophils Percent Auto 56.6 % (45.5-73.1); Platelet Count Result 116 k/mm3 (150-375); Red Blood Count 4.45 M/mm3 (4.2-5.4); Red Cell Distribution Width 14.4 % (11.5-14.5); White Blood Count 3.2 K/mm3 (4.5-10.0)
[2023-04-15 05:59] LABS: Alanine Aminotransferase 25 U/L (6-35); Albumin Level 3.3 g/dL (3.5-5.1); Alkaline Phosphatase 80 U/L (38-126); Anion Gap 7 mmol/L (8-16); Aspartate Amino Transferase 51 U/L (14-36); Bilirubin,Total 0.6 mg/dL (0.2-1.3); Blood Urea Nitrogen 15 mg/dL (7-17); Calcium 7.6 mg/dL (8.4-10.2); Carbon Dioxide 20 mmol/L (22-30); Chloride 110 mmol/L (98-107); Estimated CRCL calculation 48 ml/min; Estimated Glomerular Filt Rate 60; Glucose 88 mg/dL (65-110); Magnesium 1.8 mg/dL (1.6-2.3); Potassium 3.4 mmol/L (3.4-5.0); Sodium 137 mmol/L (137-145)
[2023-04-15 06:00] VITALS: BP 148/82; PULSE 66; RESP 18; TEMP 36.7; O2SAT 96
[2023-04-15] MEDS: SODIUM CHLORIDE 0.9% IV 1,000 ML 125 ML IV CONT ×2 (06:59→16:22)
[2023-04-15 09:02] VITALS: RESP 18; O2SAT 96
[2023-04-15] MEDS: HEPARIN SODIUM 5,000 UNITS/ML VIAL 5000 UNITS SUB-Q ×2 (09:02→21:15)
[2023-04-15] MEDS: ASPIRIN 81 MG ENTERIC TABLET PO (09:02)
[2023-04-15] MEDS: BENZONATATE 100 MG CAPSULE PO ×3 (09:02→16:24)
[2023-04-15 10:33] LABS: MRSA (PCR) NOT DETECTED (NOT DETECTE)
--- NOTE | 2023-04-15 11:54 | PM.IMPN ---
Progress Note: A&P Assessment and Plan (1) Weakness: Code(s): R53.1 - Weakness Status: Acute Assessment and Plan: DDx: PNA, UTI, dehydration, viral syndrome, sepsis. ruled out anemia, significant electrolyte derangement, and acute [place]. UA suggestive of UTI. CXR ordered - PNA, LL lobe. Viral PCR ordered - COVID+. Will proceed with maintenance fluids, has already received 1L of NS. continue to monitor labs. does not meet SIRS criteria at this time. Of note, AST mildly elevated at 54. Patient reported she needs her gallbladder out , no acute RUQ pain at this time, no recent imaging on file. consider RUQ US if patient develops upper abdominal pain during hospital course. suspect weakness is multifactorial r/t COVID, PNA, and UTI cocurrent infections. 04/15: Multifactorial including UTI, COVID pneumonia and caring for her . Plan to allow patient to rest today. Add PT/OT tomorrow. (2) UTI (urinary tract infection): Qualifiers: Hematuria presence: with hematuria Urinary tract infection type: acute cystitis Qualified Code(s): N30.01 - Acute cystitis with hematuria Code(s): N39.0 - Urinary tract infection, site not specified Status: Acute Assessment and Plan: UA: turbid, 1+ protein trace ketones, +blood positive nitrates 2+ leuks, 6-10 RBC, greater than 100 WBC no epithelial cells, 4+ bacteria. Urine culture pending. previous urine cultures reviewed - 05/09/21 showed mixed adrien, 11/10/20 klebsiella pneumoniae, 05/18/20 showed klebsiella pneumoniae. started on Bactrim IVPB, multiple allergies. no current concern for pyelo or stones given lack of flank pain, fever, jose luis hematuria, or abdominal pain. consider additional imaging if there are changes in urine output. jose luis hematuria, or if she develops flank pain. 04/15: Urine culture pending, continue Bactrim for now given numerous allergies. (3) COVID: Code(s): U07.1 - COVID-19 Status: Acute Assessment and Plan: Dry cough accompanied by diarrhea and body aches. Viral PCR pending - COVID+. add CXR, awaiting results. mild conversational dyspnea observed, no current need for supplemental O2. does have hx of PE, no current CP, palpitations, or hypoxia. cannot exclude, however Well's Criteria 1.5, low risk group. Symptom onset - 04/11 tested positive for COVID on - 04/14 complicating comorbidities - none CXR: Left lower lobe atelectasis/pneumonia. Mild interstitial edema. ESR and CRP ordered start antiviral. due to -hypoxia will start - Remdesivir 200 mg IVPB x1 then 100 mg x4 for 5 total doses. anticoagulation: Prophylactic: 5,000 units SQ bid or tid supportive care - albuterol inhaler Q4H - TYL prn for fever/pain - zofran prn - tessalon perles prn monitor VS/O2 monitor daily labs, add ESR/CRP, PT/INR for AM labs 04/15: add procalcitonin (4) Pneumonia: Code(s): J18.9 - Pneumonia, unspecified organism Status: Acute Assessment and Plan: CXR showing left lower lobe atelectasis/pneumonia and mild interstitial edema. Cocurrent COVID and UTI infection. Onset of s/s 3 days ago. CAP v COVID pna. will start CAP treatment as well - Vanc. MRSA screening ordered - still pending. 04/15: MRSA PCR negative. Vancomycin discontinued. Continue IV Bactrim for now. Ordered sputum culture, Legionella, pneumococcal antigen, mycoplasma/chlamydia pneumoniae swabs and blood cultures Plan Home Meds/Chronic Conditions - continue home ASA and albuterol. Diet: Clear Liquids, advance to Heart Healthy as tolerated GI Prophylaxis: not indicated DVT Prophylaxis: SCDs, Heparin SQ Lines: pIV Code Status: Full Code Time Spent With Patient Time with patient: 25 - 35 minutes Subjective Date/time seen: 04/15/23 11:54 Interval history: 04/14: 82 y/o F presents here with weakness, cough, and dysuria with PMH of aortic stenosis, depression/anxiety, DM, HTN, Wellington-Kevin Syndrome, and Pulmonary Embolism. Patient presents
[2023-04-15 15:23] VITALS: BP 117/47; PULSE 63; RESP 16; TEMP 36.9; O2SAT 95
[2023-04-15] MEDS: ONDANSETRON INJ 4 MG/2 ML VIAL IV PUSH (18:52)
[2023-04-15 20:00] VITALS: PULSE 63; RESP 14; O2SAT 94
[2023-04-15 20:00] LABS: Procalcitonin 0.2 ng/mL
[2023-04-15 20:41] VITALS: BP 141/75; PULSE 63; RESP 14; TEMP 36.8; O2SAT 94
[2023-04-15] MEDS: REMDESIVIR 100 MG/NS 250 ML 100 MG/250 ML BAG 250 MG IVPB (21:15)
[2023-04-15 21:17] LABS: Hemoglobin A1C 5.5 % (<5.7)
[2023-04-16] MEDS: SODIUM CHLORIDE 0.9% IV 1,000 ML 125 ML IV CONT ×3 (04:47→20:15)
[2023-04-16 05:10] VITALS: BP 144/69; PULSE 64; RESP 15; TEMP 36.7; O2SAT 93
[2023-04-16 06:27] LABS: Basophils Percent Auto 0.4 % (0.2-1.2); Hematocrit 42.7 % (37.0-47.0); Immature Granulocyte Absolute 0.01 K/mm3 (0.00-0.031); Immature Granulocyte Percent A 0.4 % (0-0.5); Lymphocytes Absolute Auto 0.81 K/mm3 (0.9-3.2); Lymphocytes Percent Auto 36.2 % (18.3-44.2); Mean Corpuscular HGB Conc 30.4 g/dl (32-36); Mean Corpuscular Hemoglobin 28.9 pg (26-34); Mean Corpuscular Volume 94.9 fl (80-100); Mean Platelet Volume 10.3 fl (7.4-10.4); Monocytes Absolute Auto 0.4 K/mm3 (0.1-0.6); Platelet Count Result 119 k/mm3 (150-375); Red Cell Distribution Width 14.6 % (11.5-14.5); White Blood Count 2.2 K/mm3 (4.5-10.0)
[2023-04-16 06:35] LABS: Prothrombin Time 13.7 Seconds (11.1-14.7)
[2023-04-16 06:47] LABS: Carbon Dioxide 19 mmol/L (22-30); Chloride 111 mmol/L (98-107); Potassium 3.6 mmol/L (3.4-5.0); Sodium 138 mmol/L (137-145)
[2023-04-16 06:48] LABS: Alanine Aminotransferase 24 U/L (6-35); Albumin Level 3.3 g/dL (3.5-5.1); Alkaline Phosphatase 76 U/L (38-126); Anion Gap 8 mmol/L (8-16); Aspartate Amino Transferase 52 U/L (14-36); Bilirubin,Total 0.6 mg/dL (0.2-1.3); Blood Urea Nitrogen 10 mg/dL (7-17); Calcium 7.6 mg/dL (8.4-10.2); Estimated CRCL calculation 48 ml/min; Estimated Glomerular Filt Rate 60; Glucose 89 mg/dL (65-110); Magnesium 1.9 mg/dL (1.6-2.3)
[2023-04-16 07:30] LABS: Procalcitonin 0.1 ng/mL
[2023-04-16] MEDS: SULFAMETHOXAZOLE/TRIMETHOPRIM 800/160 MG DS TABLET 1 TAB PO ×2 (09:12→20:15)
[2023-04-16] MEDS: BENZONATATE 100 MG CAPSULE PO ×3 (09:12→17:17)
[2023-04-16] MEDS: HEPARIN SODIUM 5,000 UNITS/ML VIAL 5000 UNITS SUB-Q ×2 (09:12→20:15)
[2023-04-16] MEDS: ASPIRIN 81 MG ENTERIC TABLET PO (09:12)
[2023-04-16 09:15] VITALS: RESP 16; O2SAT 93
[2023-04-16] MEDS: ACETAMINOPHEN 325 MG TABLET 650 MG PO (09:36)
--- NOTE | 2023-04-16 11:51 | PM.IMPN ---
Progress Note: A&P Assessment and Plan (1) Weakness: Code(s): R53.1 - Weakness Status: Acute Assessment and Plan: DDx: PNA, UTI, dehydration, viral syndrome, sepsis. ruled out anemia, significant electrolyte derangement, and acute [place]. UA suggestive of UTI. CXR ordered - PNA, LL lobe. Viral PCR ordered - COVID+. Will proceed with maintenance fluids, has already received 1L of NS. continue to monitor labs. does not meet SIRS criteria at this time. Of note, AST mildly elevated at 54. Patient reported she needs her gallbladder out , no acute RUQ pain at this time, no recent imaging on file. consider RUQ US if patient develops upper abdominal pain during hospital course. suspect weakness is multifactorial r/t COVID, PNA, and UTI cocurrent infections. 04/15: Multifactorial including UTI, COVID pneumonia and caring for her . Plan to allow patient to rest today. Add PT/OT tomorrow. 04/16: PT/OT ordered and out of bed for meals/ambulate with assistance, patient will need SNF on discharge (2) UTI (urinary tract infection): Qualifiers: Hematuria presence: with hematuria Urinary tract infection type: acute cystitis Qualified Code(s): N30.01 - Acute cystitis with hematuria Code(s): N39.0 - Urinary tract infection, site not specified Status: Acute Assessment and Plan: UA: turbid, 1+ protein trace ketones, +blood positive nitrates 2+ leuks, 6-10 RBC, greater than 100 WBC no epithelial cells, 4+ bacteria. Urine culture pending. previous urine cultures reviewed - 05/09/21 showed mixed adrien, 11/10/20 klebsiella pneumoniae, 05/18/20 showed klebsiella pneumoniae. started on Bactrim IVPB, multiple allergies. no current concern for pyelo or stones given lack of flank pain, fever, jose luis hematuria, or abdominal pain. consider additional imaging if there are changes in urine output. jose luis hematuria, or if she develops flank pain. 04/15: Urine culture pending, continue Bactrim for now given numerous allergies. 04/16: Klebsiella oxytoca in urine, will continue Bactrim (3) COVID: Code(s): U07.1 - COVID-19 Status: Acute Assessment and Plan: Dry cough accompanied by diarrhea and body aches. Viral PCR pending - COVID+. add CXR, awaiting results. mild conversational dyspnea observed, no current need for supplemental O2. does have hx of PE, no current CP, palpitations, or hypoxia. cannot exclude, however Well's Criteria 1.5, low risk group. Symptom onset - 04/11 tested positive for COVID on - 04/14 complicating comorbidities - none CXR: Left lower lobe atelectasis/pneumonia. Mild interstitial edema. ESR and CRP ordered start antiviral. due to -hypoxia will start - Remdesivir 200 mg IVPB x1 then 100 mg x4 for 5 total doses. anticoagulation: Prophylactic: 5,000 units SQ bid or tid supportive care - albuterol inhaler Q4H - TYL prn for fever/pain - zofran prn - tessalon perles prn monitor VS/O2 monitor daily labs, add ESR/CRP, PT/INR for AM labs 04/15: add procalcitonin 04/16: procalcitonin normal, continue Remdesivir and supportive care. (4) Pneumonia: Code(s): J18.9 - Pneumonia, unspecified organism Status: Acute Assessment and Plan: CXR showing left lower lobe atelectasis/pneumonia and mild interstitial edema. Cocurrent COVID and UTI infection. Onset of s/s 3 days ago. CAP v COVID pna. will start CAP treatment as well - Vanc. MRSA screening ordered - still pending. 04/15: MRSA PCR negative. Vancomycin discontinued. Continue IV Bactrim for now. Ordered sputum culture, Legionella, pneumococcal antigen, mycoplasma/chlamydia pneumoniae swabs and blood cultures 04/16: Likely just Covid pneumonia, continue Bactrim for UTI. Plan Home Meds/Chronic Conditions - continue home ASA and albuterol. Diet: Clear Liquids, advance to Heart Healthy as tolerated GI Prophylaxis: not indicated DVT Prophylaxis: SCDs, Heparin SQ Lines: pIV Code Status: Full Code PT/OT ordered
[2023-04-16 13:53] VITALS: BP 140/61; PULSE 69; RESP 14; TEMP 35.8; O2SAT 93
[2023-04-16] MEDS: guaiFENesin 600 MG/DEXTROMETHORPHAN 30 MG SR TAB 12 HR 1 TAB PO (20:15)
[2023-04-16 20:38] VITALS: BP 121/62; PULSE 59; RESP 20; TEMP 36.1; O2SAT 97
[2023-04-16] MEDS: REMDESIVIR 100 MG/NS 250 ML 100 MG/250 ML BAG 250 MG IVPB (21:24)
[2023-04-17 03:31] VITALS: BP 142/58; PULSE 65; RESP 20; TEMP 36.5; O2SAT 95
[2023-04-17] MEDS: SODIUM CHLORIDE 0.9% IV 1,000 ML 125 ML IV CONT (04:36)
[2023-04-17 06:26] LABS: Basophils Percent Auto 0.4 % (0.2-1.2); Eosinophils Percent Auto 0.8 % (0-4.4); Hematocrit 40.5 % (37.0-47.0); Hemoglobin 12.2 g/dL (12.0-15.0); Immature Granulocyte Absolute 0.01 K/mm3 (0.00-0.031); Immature Granulocyte Percent A 0.4 % (0-0.5); Immature Platelet Fraction Pct 4.4 % (0.9-11.2); Lymphocytes Absolute Auto 0.87 K/mm3 (0.9-3.2); Lymphocytes Percent Auto 36.3 % (18.3-44.2); Mean Corpuscular HGB Conc 30.1 g/dl (32-36); Mean Corpuscular Hemoglobin 28.8 pg (26-34); Mean Corpuscular Volume 95.5 fl (80-100); Mean Platelet Volume 10.7 fl (7.4-10.4); Monocytes Absolute Auto 0.3 K/mm3 (0.1-0.6); Monocytes Percent Auto 13.8 % (2.6-8.5); Neutrophils Absolute Auto 1.2 K/mm3 (1.3-6.7); Neutrophils Percent Auto 48.3 % (45.5-73.1); Platelet Count Result 117 k/mm3 (150-375); Red Blood Count 4.24 M/mm3 (4.2-5.4); Red Cell Distribution Width 14.6 % (11.5-14.5); White Blood Count 2.4 K/mm3 (4.5-10.0)
[2023-04-17 06:32] LABS: Anion Gap 7 mmol/L (8-16); Blood Urea Nitrogen 12 mg/dL (7-17); Calcium 7.5 mg/dL (8.4-10.2); Carbon Dioxide 20 mmol/L (22-30); Chloride 111 mmol/L (98-107); Estimated CRCL calculation 54 ml/min; Estimated Glomerular Filt Rate > 60; Glucose 88 mg/dL (65-110); Magnesium 1.8 mg/dL (1.6-2.3); Potassium 3.5 mmol/L (3.4-5.0); Sodium 138 mmol/L (137-145)
[2023-04-17 08:00] VITALS: PULSE 65; RESP 20; O2SAT 95
[2023-04-17] MEDS: guaiFENesin 600 MG/DEXTROMETHORPHAN 30 MG SR TAB 12 HR 1 TAB PO ×2 (08:28→21:35)
[2023-04-17] MEDS: SULFAMETHOXAZOLE/TRIMETHOPRIM 800/160 MG DS TABLET 1 TAB PO ×2 (08:28→21:35)
[2023-04-17] MEDS: ASPIRIN 81 MG ENTERIC TABLET PO (08:28)
[2023-04-17] MEDS: BENZONATATE 100 MG CAPSULE PO ×3 (08:28→17:27)
--- NOTE | 2023-04-17 10:59 | PM.IMPN ---
Progress Note: A&P Assessment and Plan (1) Weakness: Code(s): R53.1 - Weakness Status: Acute Assessment and Plan: DDx: PNA, UTI, dehydration, viral syndrome, sepsis. ruled out anemia, significant electrolyte derangement, and acute [place]. UA suggestive of UTI. CXR ordered - PNA, LL lobe. Viral PCR ordered - COVID+. Will proceed with maintenance fluids, has already received 1L of NS. continue to monitor labs. does not meet SIRS criteria at this time. Of note, AST mildly elevated at 54. Patient reported she needs her gallbladder out , no acute RUQ pain at this time, no recent imaging on file. consider RUQ US if patient develops upper abdominal pain during hospital course. suspect weakness is multifactorial r/t COVID, PNA, and UTI cocurrent infections. 04/15: Multifactorial including UTI, COVID pneumonia and caring for her . Plan to allow patient to rest today. Add PT/OT tomorrow. 04/16: PT/OT ordered and out of bed for meals/ambulate with assistance, patient will need SNF on discharge 04/17: patient doing somewhat better today refuses SNF on discharge is willing to work with home health PT and OT however due to COVID positive status home health cannot be arranged at this time. Will re-evaluate tomorrow (2) UTI (urinary tract infection): Qualifiers: Hematuria presence: with hematuria Urinary tract infection type: acute cystitis Qualified Code(s): N30.01 - Acute cystitis with hematuria Code(s): N39.0 - Urinary tract infection, site not specified Status: Acute Assessment and Plan: UA: turbid, 1+ protein trace ketones, +blood positive nitrates 2+ leuks, 6-10 RBC, greater than 100 WBC no epithelial cells, 4+ bacteria. Urine culture pending. previous urine cultures reviewed - 05/09/21 showed mixed adrien, 11/10/20 klebsiella pneumoniae, 05/18/20 showed klebsiella pneumoniae. started on Bactrim IVPB, multiple allergies. no current concern for pyelo or stones given lack of flank pain, fever, jose luis hematuria, or abdominal pain. consider additional imaging if there are changes in urine output. jose luis hematuria, or if she develops flank pain. 04/15: Urine culture pending, continue Bactrim for now given numerous allergies. 04/16: Klebsiella oxytoca in urine, will continue Bactrim (3) COVID: Code(s): U07.1 - COVID-19 Status: Acute Assessment and Plan: Dry cough accompanied by diarrhea and body aches. Viral PCR pending - COVID+. add CXR, awaiting results. mild conversational dyspnea observed, no current need for supplemental O2. does have hx of PE, no current CP, palpitations, or hypoxia. cannot exclude, however Well's Criteria 1.5, low risk group. Symptom onset - 04/11 tested positive for COVID on - 04/14 complicating comorbidities - none CXR: Left lower lobe atelectasis/pneumonia. Mild interstitial edema. ESR and CRP ordered start antiviral. due to -hypoxia will start - Remdesivir 200 mg IVPB x1 then 100 mg x4 for 5 total doses. anticoagulation: Prophylactic: 5,000 units SQ bid or tid supportive care - albuterol inhaler Q4H - TYL prn for fever/pain - zofran prn - tessalon perles prn monitor VS/O2 monitor daily labs, add ESR/CRP, PT/INR for AM labs 04/15: add procalcitonin 04/16: procalcitonin normal, continue Remdesivir and supportive care. (4) Pneumonia: Code(s): J18.9 - Pneumonia, unspecified organism Status: Acute Assessment and Plan: CXR showing left lower lobe atelectasis/pneumonia and mild interstitial edema. Cocurrent COVID and UTI infection. Onset of s/s 3 days ago. CAP v COVID pna. will start CAP treatment as well - Vanc. MRSA screening ordered - still pending. 04/15: MRSA PCR negative. Vancomycin discontinued. Continue IV Bactrim for now. Ordered sputum culture, Legionella, pneumococcal antigen, mycoplasma/chlamydia pneumoniae swabs and blood cultures 04/16: Likely just Covid pneumonia, continue Bactrim for UTI. Plan patient condition impro
[2023-04-17 14:00] VITALS: BP 113/60; PULSE 61; RESP 12; TEMP 36.8; O2SAT 97
[2023-04-17 21:12] VITALS: BP 113/52; PULSE 61; RESP 18; TEMP 36.7; O2SAT 96
[2023-04-17] MEDS: HEPARIN SODIUM 5,000 UNITS/ML VIAL 5000 UNITS SUB-Q (21:34)
[2023-04-17] MEDS: REMDESIVIR 100 MG/NS 250 ML 100 MG/250 ML BAG 250 MG IVPB (21:35)
[2023-04-18 05:33] VITALS: BP 127/70; PULSE 59; RESP 18; TEMP 36.7; O2SAT 95
[2023-04-18 06:20] LABS: Basophils Percent Auto 0.3 % (0.2-1.2); Eosinophils Absolute Auto 0.1 K/mm3 (0-0.3); Eosinophils Percent Auto 1.9 % (0-4.4); Hemoglobin 13.7 g/dL (12.0-15.0); Immature Granulocyte Absolute 0.01 K/mm3 (0.00-0.031); Immature Granulocyte Percent A 0.3 % (0-0.5); Lymphocytes Absolute Auto 1.19 K/mm3 (0.9-3.2); Lymphocytes Percent Auto 36.7 % (18.3-44.2); Mean Corpuscular HGB Conc 31.1 g/dl (32-36); Mean Corpuscular Hemoglobin 28.9 pg (26-34); Mean Corpuscular Volume 92.8 fl (80-100); Mean Platelet Volume 10.9 fl (7.4-10.4); Monocytes Absolute Auto 0.4 K/mm3 (0.1-0.6); Monocytes Percent Auto 12.3 % (2.6-8.5); Neutrophils Absolute Auto 1.6 K/mm3 (1.3-6.7); Neutrophils Percent Auto 48.5 % (45.5-73.1); Platelet Count Result 150 k/mm3 (150-375); Red Blood Count 4.74 M/mm3 (4.2-5.4); Red Cell Distribution Width 14.5 % (11.5-14.5); White Blood Count 3.2 K/mm3 (4.5-10.0)
[2023-04-18 06:30] LABS: Prothrombin Time 14.1 Seconds (11.1-14.7)
[2023-04-18 06:38] LABS: Alanine Aminotransferase 24 U/L (6-35); Albumin Level 3.7 g/dL (3.5-5.1); Alkaline Phosphatase 88 U/L (38-126); Anion Gap 9 mmol/L (8-16); Aspartate Amino Transferase 46 U/L (14-36); Bilirubin,Total 0.6 mg/dL (0.2-1.3); Blood Urea Nitrogen 13 mg/dL (7-17); Calcium 8.3 mg/dL (8.4-10.2); Carbon Dioxide 21 mmol/L (22-30); Chloride 108 mmol/L (98-107); Estimated CRCL calculation 54 ml/min; Estimated Glomerular Filt Rate > 60; Glucose 96 mg/dL (65-110); Magnesium 1.9 mg/dL (1.6-2.3); Potassium 3.4 mmol/L (3.4-5.0); Sodium 138 mmol/L (137-145)
[2023-04-18] MEDS: HEPARIN SODIUM 5,000 UNITS/ML VIAL 5000 UNITS SUB-Q (08:42)
[2023-04-18] MEDS: BENZONATATE 100 MG CAPSULE PO ×3 (08:42→16:19)
[2023-04-18] MEDS: SULFAMETHOXAZOLE/TRIMETHOPRIM 800/160 MG DS TABLET 1 TAB PO (08:43)
[2023-04-18] MEDS: ASPIRIN 81 MG ENTERIC TABLET PO (08:43)
[2023-04-18] MEDS: guaiFENesin 600 MG/DEXTROMETHORPHAN 30 MG SR TAB 12 HR 1 TAB PO (08:43)
[2023-04-18 08:46] VITALS: RESP 18; O2SAT 95
--- NOTE | 2023-04-18 10:45 | PM.DS ---
DS: Admitting Diagnosis Discharge Date 04/18/2023 Admitting Diagnosis weakness, UTI, COVID, pneumonia DS: Discharge Diagnosis Discharge Diagnosis (1) Weakness: Code(s): R53.1 - Weakness Status: Acute (2) UTI (urinary tract infection): Qualifiers: Hematuria presence: with hematuria Urinary tract infection type: acute cystitis Qualified Code(s): N30.01 - Acute cystitis with hematuria Code(s): N39.0 - Urinary tract infection, site not specified Status: Acute (3) COVID: Code(s): U07.1 - COVID-19 Status: Acute (4) Pneumonia: Code(s): J18.9 - Pneumonia, unspecified organism Status: Acute DS: Summary Hospital Course Reason for hospitalization: COVID pneumonia UTI weakness Hospital Course: 04/14:? 82 y/o F presents here with weakness, cough, and dysuria with PMH of aortic stenosis, depression/anxiety, DM, HTN, Wellington-Kevin Syndrome, and Pulmonary Embolism.? Patient presents here with generalized weakness that began last night around around 0300. Patient was getting up to go to the restroom when she began to feel too weak to stand. Patient used wall and slid herself to the floor without injury or loss of consciousness. Unable to stand back up despite her 's help and was laying on the ground for 3-4 hours. Weakness was preceded by urinary frequency, malodorous urine, and urinary discoloration (dark/dark/cloudy) for past 2-3 weeks.? Patient was unable to seek care for herself due to her being sick and who was also recently hospitalized.? In addition to the urinary symptoms, patient developed a dry cough 3 days ago that is accompanied by increased body aches and intermittent non-bloody diarrhea.? She denies fever or chills.? Reports intermittent chest tightness that is brief past few years, none currently.? No focal deficits, numbness, changes speech, or facial droop. 04/15:? Patient reports feeling very tired despite laying in bed for days.? She reports she cannot sleep well, just dozes from time to time.? Patient reports significant productive cough and shortness of breath on exertion.? She also reports frequent and urgent urination.? Patient knows she was diagnosed with Covid and UTI.? She reports she has been trying to take care of her 89 year old and that today he failed his mail truck driver's test.? She reports that his memory is failing and she has been trying so hard to keep him improving that she had neglected to care for herself.? No acute events reported since being hospitalized yesterday.? She is on room air with dyspnea on exertion.? Patient had been started on Remdesivir for Covid pneumonia and IV Bactrim due to UTI and pneumonia.? She was also started on IV vancomycin but MRSA PCR was negative so vancomycin was discontinued.? Patient has multiple antibiotic allergies including Wellington-Kevin Syndrome after taking Augmentin and documented allergies to cephalosporins, levofloxacin and clarithromycin.? Will check Legionella/pneumococcal urine antigen, mycoplasma/chlamydia pneumoniae swabs.? Sputum and blood cultures ordered though antibiotics have already been started. 04/16:? Patient reports feeling and resting a bit better but still profoundly weak feeling.? No dyspnea and patient remains on room air.? PT/OT to be ordered.? Patient reports a bit of chest congestion with persistent cough, add Mucinex DM.? Will change Bactrim to oral.? Urine culture resulted Klebsiella oxytoca that is susceptible to Bactrim.? 04/17:? Patient feeling a bit better, PT/OT to work with her today.? She is not interested in SNF and would be ok with Home Health for PT/OT.? However, due to Covid diagnosis home health cannot be arranged yet.? Will evaluate potential for discharge tomorrow.? Patient denies new or worsening symptoms.? IV fluids discontinued today. 04/18: patient feeling a lot better today. She is able to walk around her room with a walker which she has at home. She is able to get b
[2023-04-18 14:05] VITALS: BP 126/46; PULSE 67; RESP 18; TEMP 36.6; O2SAT 97
[2023-04-19 04:22] LABS: Pneumococcal Antigen Urine Not Detected (Not Detected)
[2023-04-19 05:00] LABS: Legionella pneumophila Ag Ur Not Detected (Not Detected)
[2023-04-23 08:13] LABS: Chlamydia pneumoniae by PCR Not Detected
== END 2023-04-18 16:35 | disposition home or self-care (01) | DRG 177 ==
LOC: ANHED 07:51 → ANH3MEDSUR 09:28 → ANH2MED 10:02
PROVIDERS: Emergency Medicine; Student in an Organized Health Care Education/Training Program; Admitting Provider General Practice; Emergency Provider Emergency Medicine; PCP Family Medicine; Visit Provider Nurse Practitioner
DX: U07.1 COVID-19 (principal); J12.82 Pneumonia due to coronavirus disease 2019; N39.0 Urinary tract infection, site not specified; L51.3 Stevens-Johnson syndrome-toxic epidermal necrolysis overlap syndrome; I10 Essential (primary) hypertension; I35.0 Nonrheumatic aortic (valve) stenosis; E11.9 Type 2 diabetes mellitus without complications; B96.89 Other specified bacterial agents as the cause of diseases classified elsewhere; H54.62 Unqualified visual loss, left eye, normal vision right eye; F32.A Depression, unspecified; F41.9 Anxiety disorder, unspecified; Z79.01 Long term (current) use of anticoagulants; Z86.711 Personal history of pulmonary embolism; Z79.82 Long term (current) use of aspirin
CPT/HCPCS: 36415; 71046; 80048; 80053; 80076; 81001; 83036; 83735; 84145; 85025; 85055; 85610; 85652; 85730; 86140; 87040; 87070; 87077; 87081; 87086; 87186; 87205; 87449; 87486; 87581; 87637; 87641; 87899; 93005; 96361; 96365; 96366; 96367; 96372; 97110; 97161; 97165; 97530; 97535; 99285; A9270; G0378; J0248; J1644; J2405; J3370; J7030; J7060

== ENCOUNTER 2023-07-27 10:10 | Emergency (ER) | payer MEDICARE, SELFPAY ==
--- NOTE | ~2023-07-27 | XR_ITS ---
XR chest 2V 07/27/2023 11:18 Indication: Productive cough Procedure: 2 view chest Comparison: Comparison to multiple prior studies sequentially, with oldest reviewed study dated 11/25. Findings: Elevated right diaphragm. Heart size normal. No focal air space disease, pulmonary edema, p leural effusion or suspected pneumothorax. Impression: 1: No acute cardiopulmonary disease. Reviewed, dictated and finalized at location A. Impression: 1: No acute cardiopulmonary disease.
[2023-07-27 10:33] VITALS: BP 119/106; PULSE 75; RESP 16; TEMP 37.3; O2SAT 97
--- NOTE | 2023-07-27 10:48 | ED.GENADULT ---
HPI - General Adult General Chief complaint: Upper Respiratory Infection Stated complaint: cough,sore throat,urinary issue Time Seen by Provider: 07/27/23 10:49 Source: patient Mode of arrival: ambulatory Limitations: no limitations History of Present Illness HPI narrative: 82 y/o female presented for c/o 2 concerns: reports cough x2 days and urinary symptoms x2 weeks. Reports urinary frequency, nocturia, decreased output each time. Denies hematuria, nausea, vomiting, abdominal pain, flank pain, constipation, diarrhea, fevers or chills. Endorses subjective fever about 2 days ago. Cough is nonproductive, frequent, keeping her up at night. States she is sob with exertion at baseline. Not taking anything for symptoms. States she does not see her doctor routinely because she does not like to go to the doctor. Hx partial lobectomy 1970s? pt states due to recurrent pneumonia. Hx frequent UTI. Related Data Allergies Allergy/AdvReac Type Severity Reaction Status Date / Time amoxicillin Allergy Severe TORRES Verified 07/27/23 10:19 MEGAN SYNDROME clavulanic acid Allergy Severe SAVANNAH Verified 07/27/23 10:19 MEGAN SYNDROME ampicillin Allergy Unknown unk Verified 07/27/23 10:19 Cephalosporins Allergy Unknown unk Verified 07/27/23 10:19 clarithromycin Allergy Unknown unk Verified 07/27/23 10:19 levofloxacin Allergy Unknown unk Verified 07/27/23 10:19 Penicillins Allergy Unknown unk Verified 07/27/23 10:19 Review of Systems Review of Systems: CONSTITUTIONAL: Denies body aches, fever, chills, or sweats. EYES: Denies visual changes, redness, or discharge. ENT: Denies rhinorrhea, congestion, sore throat, or otalgia. CARDIOVASCULAR: Denies chest pain, palpitations, or edema. RESPIRATORY: Reports cough, sob, wheezing. GASTROINTESTINAL: Denies abdominal pain, nausea, vomiting, or diarrhea. GENITOURINARY: Denies flank pain, dysuria or hematuria. Reports frequency, nocturia SKIN: Denies rash, itching, or wounds. MUSCULOSKELETAL: Denies back pain, joint pain, or myalgia. NEUROLOGIC: Denies headache All systems reviewed & are unremarkable except as noted in HPI and below PMFSH Past Medical History Medical History Aortic stenosis Blind left eye Depression with anxiety Diabetes Diverticulosis of large intestine without hemorrhage Elevated blood pressure reading Essential hypertension Hx of long-term (current) use of anticoagulants Hx of Torres-Megan toxic epidermal necrolysis overlap syndrome Internal hemorrhoids Personal history of pulmonary embolism Surgical History Surgical History H/O eye surgery H/O foot surgery History of carpal tunnel release History of injection of tarsal tunnel History of lung surgery History of partial hysterectomy Hx of cataract extraction Family History Family History Mother Cerebrovascular accident Father Family history of lung cancer Sibling Acute myocardial infarction Social History Social History Social History: the patient has been for 60 years. She does not use any alcohol and does not smoke. She has 4 children. She retired from the [employer]. Her is the durable power banking attorney for healthcare. Code status full code. Smoking status: Never smoker Second hand tobacco smoke exposure: No Alcohol intake: never Substance use: never Substance use type: does not use Do You Feel Safe in your Home?: Yes Lack of Transportation: No Lack of Food: Never True Current Housing: I Have Housing Concerned About Future Housing: No Difficulty Paying Gas/Electric Bills: No Difficulty Paying for Meds: No Currently Unemployed: No Education: High School Diploma/GED Difficulty w/ Childcare or Family Care:
== END 2023-07-27 12:07 | disposition home or self-care (01) ==
PROVIDERS: Emergency Provider Nurse Practitioner Family; PCP Family Medicine
DX: J40 Bronchitis, not specified as acute or chronic (principal); N39.0 Urinary tract infection, site not specified; B96.20 Unspecified Escherichia coli [E. coli] as the cause of diseases classified elsewhere; E11.9 Type 2 diabetes mellitus without complications; I10 Essential (primary) hypertension; Z86.711 Personal history of pulmonary embolism; Z90.711 Acquired absence of uterus with remaining cervical stump; I35.0 Nonrheumatic aortic (valve) stenosis; Z90.2 Acquired absence of lung [part of]; H54.62 Unqualified visual loss, left eye, normal vision right eye; Z79.82 Long term (current) use of aspirin
CPT/HCPCS: 71046; 81003; 87077; 87086; 87088; 87186; 99213; G0463

== ENCOUNTER 2023-09-20 16:27 | Inpatient (IN) | payer MEDICARE, SELFPAY ==
[2023-09-20] VITALS (10 sets, daily range): BP systolic 102–136; BP diastolic 56–78; PULSE 90–114; RESP 20–37; TEMP 36.4–37.1; O2SAT 92–95; BMI 28.6
--- NOTE | ~2023-09-20 | XR_ITS ---
EXAMINATION: XR chest 1V portable DATE: 09/20/2023 17:50 INDICATION: Weakness. Shortness of breath. TECHNIQUE: A single frontal view of the chest was obtained. COMPARISON: Chest 2 views 07/27/2023 FINDINGS: There is eventration of anterior hemidiaphragm. There is mild atelectasis at left lung base . No pleural effusion or pneumothorax. The heart size is normal. IMPRESSION: 1. Mild atelectasis at left lung base. Reviewed, dictated and finalized at location E.
--- NOTE | ~2023-09-20 | CT_ITS ---
EXAMINATION: CTA chest PE abdomen pel DATE: 09/20/2023 19:58 INDICATION: Shortness of breath. Chest pain. TECHNIQUE: Computed tomography angiography (CTA) of the chest was performed with 100 mL Omnipaque-350 intravenous contrast timed to evaluate the pulmonary arteries. Coronal maximum intensity projection 3D-reconstructions were created by the technologist. Computed tomography (CT) of the abdomen and pelv is was performed with intravenous contrast. Automated exposure control and iterative reconstruction t echnique were employed. The dose-length product was 1122.78 mGy-cm. COMPARISON: Chest CT 04/19/14 FINDINGS: CTA chest: The lungs demonstrate mild atelectasis. There are groundglass opacities in left lower lobe , consistent with mild pneumonia. Calcified pulmonary nodules and calcified hilar lymph nodes are con sistent with old granulomatous disease. No pleural effusion. The heart size is normal. There are calc ifications of the aortic valve. There are coronary artery calcifications. No pericardial effusion. Th ere is ectasia of ascending aorta measuring 4.3 cm. There is no pulmonary embolus. There is mild thor acic spondylosis. CT abdomen and pelvis: The liver, gallbladder, spleen, pancreas, adrenal glands are normal. There is cortical thinning of the kidneys. There are cysts in right kidney measuring up to 8 mm. There is calc ified atherosclerosis of the aorta and many of the other arteries. There is diverticulosis of the col on without evidence of diverticulitis. There are no dilated loops of bowel. The appendix is normal. T here are no pathologically enlarged lymph nodes. There is no free intraperitoneal fluid. There is sev ere lumbar spondylosis. IMPRESSION: 1. No pulmonary embolus. 2. Mild pneumonia in left lower lobe. Reviewed, dictated and finalized at location E.
--- NOTE | 2023-09-20 16:55 | ECG_ITS ---
SEE SCANNED COPY FOR CONFIRMED REPORT MTDD
--- NOTE | 2023-09-20 17:22 | ED.WEAKNESS ---
HPI - Weakness General Chief complaint: Weakness <BRENDAN Olson Last Filed: 09/20/23 21:15> Stated complaint: weakness <BRENDAN Olson Last Filed: 09/20/23 21:15> Time Seen by Provider: 09/20/23 17:02 <BRENDAN Olson Last Filed: 09/20/23 21:15> Source: patient <BRENDAN Olson Last Filed: 09/20/23 21:15> Mode of arrival: EMS <BRENDAN Olson Last Filed: 09/20/23 21:15> Limitations: no limitations <BRENDAN Olson Last Filed: 09/20/23 21:15> History of Present Illness HPI Narrative: Patient is an 82-year-old female who presents the ED via EMS with report of weakness. Patient reports she has had a cough and congestion for the last 1 month or so. Reports history of COPD, shortness of breath, worse with exertion. States today she became very weak, was having difficulty ambulating throughout her house, even sitting up. [place] short of breath with any exertion. Also report having chills and subjective fever today. She does also reports intermittent chest pressure over the past 3-4 days. Denies lower ext pain or swelling, N/V/D, known sick contacts. <BRENDAN Olson Last Filed: 09/20/23 21:15> Related Data Allergies/Adverse reactions: Allergies Allergy/AdvReac Type Severity Reaction Status Date / Time amoxicillin Allergy Severe KC Verified 09/20/23 23:16 MEGAN SYNDROME ampicillin Allergy Severe Kc Verified 09/20/23 23:16 Johnsons Syndrome clavulanic acid Allergy Severe [place] Verified 09/20/23 23:16 MEGAN SYNDROME Penicillins Allergy Severe Wellington Verified 09/20/23 23:16 Megan Syndrome Cephalosporins Allergy Unknown Unknown Verified 09/20/23 23:16 clarithromycin Allergy Unknown Unknown Verified 09/20/23 23:16 levofloxacin Allergy Unknown Unknown Verified 09/20/23 23:16 <BRENDAN Olson Last Filed: 09/20/23 21:15> Review of Systems Review of Systems: CONSTITUTIONAL: See HPI. ENT: See HPI. CARDIOVASCULAR: See HPI. RESPIRATORY: See HPI. GASTROINTESTINAL: Denies abdominal pain, nausea, vomiting, or diarrhea. NEUROLOGIC: Denies headache, dizziness, numbness, or weakness. <Angelica Montemayor PA-C - Last Filed: 09/20/23 21:15> All systems reviewed & are unremarkable except as noted in HPI and below <Angelica Montemayor PA-C - Last Filed: 09/20/23 21:15> [facility] Past Medical History Medical History: Medical History Aortic stenosis Blind left eye Depression with anxiety Diabetes Diverticulosis of large intestine without hemorrhage Elevated blood pressure reading Essential hypertension Hx of long-term (current) use of anticoagulants Hx of Kc-Megan toxic epidermal necrolysis overlap syndrome Internal hemorrhoids Personal history of pulmonary embolism <Angelica Montemayor PA-C - Last Filed: 09/20/23 21:15> Surgical History Surgical History: Surgical History H/O eye surgery H/O foot surgery History of carpal tunnel release History of injection of tarsal tunnel History of lung surgery History of partial hysterectomy Hx of cataract extraction <Angelica Montemayor PA-C - Last Filed: 09/20/23 21:15> Family History Family History: Family History Mother Cerebrovascular accident Father Family history of lung cancer Sibling Acute myocardial infarction Son Diabetes mellitus <Angelica Montemayor PA-C - Last Filed: 09/20/23 21:15> Social History Social History: Social History Social History: the patient has been for 60 years. She does not use any alcohol and does not smoke. She has 4 children. She retired from the [employer]
[2023-09-20] MEDS: SODIUM CHLORIDE 0.9% IV 1,000 ML 999 ML IV CONT ×2 (17:33→19:55)
[2023-09-20] MEDS: IPRATROPIUM BR 0.02% INH SOLN 0.5 MG/2.5 ML VIAL 1.5 MG INHALATION (17:35)
[2023-09-20] MEDS: LEVALBUTEROL NEB 1.25 MG/3 ML 2.5 MG INHALATION (17:35)
[2023-09-20 17:51] LABS: Basophils Percent Auto 0.3 % (0.2-1.2); Eosinophils Percent Auto 0.1 % (0-4.4); Hematocrit 42.3 % (37.0-47.0); Hemoglobin 13.2 g/dL (12.0-15.0); Immature Granulocyte Absolute 0.04 K/mm3 (0.00-0.031); Immature Granulocyte Percent A 0.3 % (0-0.5); Lymphocytes Absolute Auto 0.22 K/mm3 (0.9-3.2); Lymphocytes Percent Auto 1.9 % (18.3-44.2); Mean Corpuscular HGB Conc 31.2 g/dl (32-36); Mean Corpuscular Hemoglobin 29.3 pg (26-34); Mean Corpuscular Volume 93.8 fl (80-100); Mean Platelet Volume 10.2 fl (7.4-10.4); Monocytes Absolute Auto 0.1 K/mm3 (0.1-0.6); Monocytes Percent Auto 0.8 % (2.6-8.5); Neutrophils Absolute Auto 11.4 K/mm3 (1.3-6.7); Neutrophils Percent Auto 96.6 % (45.5-73.1); Platelet Count Result 192 k/mm3 (150-375); Red Blood Count 4.51 M/mm3 (4.2-5.4); Red Cell Distribution Width 14.3 % (11.5-14.5); White Blood Count 11.8 K/mm3 (4.5-10.0)
[2023-09-20 17:54] LABS: Appearance Urine Cloudy (Clear); Bacteria Urine 4+ /hpf; Bilirubin Urine Negative (Negative); Blood Urine 1+ (Negative); Color Urine Yellow (Yellow); Glucose Urine UA Negative (Negative); Ketones Urine Negative (Negative); Leukocyte Esterase Ur 2+ LEU/UL (Negative); Nitrate Urine Positive (Negative); Non Pathogenic Casts 0-2; Protein Urine 1+ mg/dL (Negative); RBC Urine 0-2 /hpf (0-2); Squamous Epithelial Cell Urine None Seen /hpf (Few); Urobilinogen Urine 0.2 mg/dL (<2.0); WBC Urine 21-50 /hpf (0-3); pH Urine 5.5 (5.0-9.0)
[2023-09-20 18:00] LABS: Alanine Aminotransferase 39 U/L (6-35); Albumin Level 3.9 g/dL (3.5-5.1); Alkaline Phosphatase 138 U/L (38-126); Anion Gap 11 mmol/L (4-12); Aspartate Amino Transferase 85 U/L (14-36); Bilirubin,Total 0.8 mg/dL (0.2-1.3); Blood Urea Nitrogen 24 mg/dL (7-17); Calcium 9.1 mg/dL (8.4-10.2); Carbon Dioxide 19 mmol/L (22-30); Chloride 111 mmol/L (98-107); Estimated CRCL calculation 34 ml/min; Estimated Glomerular Filt Rate 39; Glucose 150 mg/dL (65-110); Lactic Acid Reflex 4.5 mmol/L (0.7-2.0); Magnesium 1.7 mg/dL (1.6-2.3); Potassium 3.3 mmol/L (3.4-5.0); Sodium 141 mmol/L (137-145)
[2023-09-20 18:15] LABS: NT Pro B Type Natriuretic Pept 997 pg/mL (19.9-100); Troponin I 0.417 ng/mL (0.000-0.034)
[2023-09-20 18:25] LABS: Influenza A QL RT-PCR Negative (Negative); Influenza B QL RT-PCR Negative (Negative); RSV RNA, RT-PCR Negative (Negative); SARS-CoV-2 RNA PCR Negative (Negative)
[2023-09-20 18:31] LABS: Add Urine Microscopic? YES
[2023-09-20 19:14] LABS: D Dimer 6.82 ug/mL (<0.48)
[2023-09-20] MEDS: KCL 20 MEQ/SW 100 ML 100 ML 50 MEQ IVPB (19:53)
[2023-09-20] MEDS: MAGNESIUM SULF 2 GM/WATER 50ML 2 GM/50 ML BAG IVPB (19:54)
[2023-09-20] MEDS: SODIUM CHLORIDE 0.9% IV 250 ML 125 ML (19:55)
[2023-09-20 20:09] LABS: Lipase 82 U/L (23-300)
[2023-09-20 20:39] LABS: Alveolar/Arterial O2 Gradient 56.1 mmHg; Base Excess ABG -2.3 mEq/l (+/-2.0); Carboxyhemoglobin 0.3 % THb (0-2.0); Fractional Inspired Oxygen 21 %; HCO3 ABG 20.8 mEq/l (22.0-26.0); Methemoglobin ABG 0.2 %THb (0-1.5); Oxyhemoglobin 90.5 % THb (90.0-100.0); PCO2 ABG 30.9 mmHg (35.0-45.0); PO2 ABG 56.6 mmHg (80.0-100.0); Total Hemoglobin 12.6 g/dL (12.0-18.0); pH ABG 7.446 (7.350-7.450)
[2023-09-20 20:40] LABS: Device ROOM AIR; Site Drawn RIGHT BRACHIAL
[2023-09-20 20:40] LABS: Procalcitonin 33.2 ng/mL
[2023-09-20 20:44] LABS: Reflex Lactic Acid Yes or No Add Lactic
[2023-09-20 21:14] LABS: Lactic Acid 2.3 mmol/L (0.7-2.0)
[2023-09-20] MEDS: ASPIRIN 81 MG CHEWABLE TABLET 324 MG PO (21:30)
[2023-09-20 21:31] LABS: Troponin I 0.589 ng/mL (0.000-0.034)
[2023-09-20] MEDS: AZITHROMYCIN 500 MG/NS 250 ML 500 MG/250 ML BAG 250 MG IVPB (22:12)
--- NOTE | 2023-09-20 22:37 | ADMGEN ---
This patient, Gifty Garcia, was admitted to IMU Room 205-01 on 09/20/23 at 2226. Patient/family oriented to hospital policies and general routines including ID bracelet, bed and alarms, visiting hours, pain management, procedures, bathroom and other care routines, personal items, smoking policy, room service/diet, and visiting hours. Information on how to activate the Rapid Response Team has been discussed. Patient/Family are encouraged to report perceived risks to care and to ask questions if they do not understand what they are told or what they should do.
[2023-09-21] VITALS (20 sets, daily range): BP systolic 95–130; BP diastolic 52–57; PULSE 65–78; RESP 12–20; TEMP 35.7–36.5; O2SAT 94–97
--- NOTE | 2023-09-21 00:02 | PM.IMHP ---
H&P: HPI History of Present Illness Date/Time: 09/21/23 00:02 Chief Complaint: Fast heart rate Narrative: 82-year-old female with a past medical history of COPD, left partial pneumonectomy in 1973, heart murmur and prior sinus surgery presented to the ER with worsening cough for 2 weeks. The patient reports that she has had a chronic cough for many years but cough is worsening for the last 2 weeks. Her cough is productive of clear to white sputum. The patient reported that she started having weakness, chills and body aches this afternoon. She reports that she was having chills so bad that her teeth were chattering. She states that she has not been taking care of herself since May. She has lost 40 lb. She has been ignoring her own health and taking care were who has chronic kidney disease and chronic indwelling Green catheter and is 89 years old. She states that she does knows that she is really sick. She does have occasional urinary incontinence. She denies any changes in her bowel habits. She denies any dysuria, hematuria or foul-smelling urine. She has chronic urinary frequency and urgency. She was treated for UTI 1 month ago at which time her urine grew out E coli that is pansensitive. In the ER patient was noted to be tachycardic and tachypneic and met severe sepsis criteria with leukocytosis, lactic acid of 4.5, elevated troponin, acute kidney injury with CT evidence of left lower lobe pneumonia. Patient received 2 L IV fluid bolus and empiric antibiotic therapy with Rocephin and azithromycin. Patient tolerated Rocephin despite having listed unknown type of allergy to cephalosporins. Patient did not have any associated hypoxia and ABG was relatively unremarkable. Review of Systems Review of Systems: 12 systems were reviewed with pertinent positives and negatives per HPI. Except as documented in the HPI, all other systems were reviewed and are negative. [facility] Past Medical History Medical History (Updated 09/21/23 @ 07:35 by Pura Prado DO) Antithrombin III deficiency Aortic stenosis Benign positional vertigo Blind left eye Depression with anxiety Diabetes Diverticulosis of large intestine without hemorrhage Essential hypertension Hx of Kc-Kevin toxic epidermal necrolysis overlap syndrome Internal hemorrhoids Personal history of pulmonary embolism Surgical History Surgical History (Updated 09/21/23 @ 07:35 by Pura Prado DO) H/O eye surgery H/O foot surgery History of carpal tunnel release History of injection of tarsal tunnel History of lung surgery Partial left pneumonectomy History of partial hysterectomy Hx of cataract extraction Family History Family History Mother Cerebrovascular accident Father Family history of lung cancer Sibling Acute myocardial infarction Son Diabetes mellitus Social History Social History (Updated 09/21/23 @ 07:38 by Pura Prado DO) Social History: The patient has been for 62 years. She does not use any alcohol and does not smoke. She has 4 children. She retired from the [employer]. Code status: Full code. Healthcare power of nut feeder: Marcus (son) her used to beer Healthcare power of nut feeder but he states that he cannot hear over the phone and she fears that he would be overwhelmed. Smoking status: Never smoker Second hand tobacco smoke exposure: Yes (H/O) Alcohol intake: never Substance use: never Substance use type: does not use Do You Feel Safe in your Home?: Yes Lack of Transportation: No Lack of Food: Never True Current Housing: I Have Housing Concerned About Future Housing: No Difficulty Paying Gas/Electric Bills: No Difficulty Paying for Meds: No Currently Unemployed: No Education: High School Diploma/GED Difficulty w/ Childcare or Family Care: No Living arrangements: with family Occu
[2023-09-21 00:58] LABS: Troponin I 0.538 ng/mL (0.000-0.034)
[2023-09-21] MEDS: LEVALBUTEROL NEB 1.25 MG/3 ML 0.63 MG INHALATION ×4 (02:25→19:39)
[2023-09-21] MEDS: IPRATROPIUM BR 0.02% INH SOLN 0.5 MG/2.5 ML VIAL INHALATION ×4 (02:26→19:40)
[2023-09-21 08:16] LABS: Hematocrit 39.1 % (37.0-47.0); Hemoglobin 12.2 g/dL (12.0-15.0); Mean Corpuscular HGB Conc 31.2 g/dl (32-36); Mean Corpuscular Hemoglobin 29.6 pg (26-34); Mean Corpuscular Volume 94.9 fl (80-100); Mean Platelet Volume 9.9 fl (7.4-10.4); Platelet Count Result 205 k/mm3 (150-375); Red Blood Count 4.12 M/mm3 (4.2-5.4); Red Cell Distribution Width 14.6 % (11.5-14.5); White Blood Count 19.5 K/mm3 (4.5-10.0)
[2023-09-21 08:31] LABS: Lactic Acid Reflex 1.5 mmol/L (0.7-2.0)
[2023-09-21 08:32] LABS: Alanine Aminotransferase 40 U/L (6-35); Albumin Level 3.5 g/dL (3.5-5.1); Alkaline Phosphatase 102 U/L (38-126); Anion Gap 5 mmol/L (4-12); Aspartate Amino Transferase 78 U/L (14-36); Bilirubin,Total 0.8 mg/dL (0.2-1.3); Blood Urea Nitrogen 22 mg/dL (7-17); Calcium 8.6 mg/dL (8.4-10.2); Carbon Dioxide 26 mmol/L (22-30); Chloride 110 mmol/L (98-107); Estimated CRCL calculation 43 ml/min; Estimated Glomerular Filt Rate 53; Glucose 107 mg/dL (65-110); Potassium 3.9 mmol/L (3.4-5.0); Sodium 141 mmol/L (137-145)
[2023-09-21] MEDS: SODIUM CHLORIDE 0.9% IV 1,000 ML 100 ML IV CONT (09:04)
[2023-09-21] MEDS: ENOXAPARIN 40 MG/0.4 ML SYRINGE SUB-Q (09:05)
[2023-09-21] MEDS: ASPIRIN 81 MG ENTERIC TABLET PO (09:05)
--- NOTE | 2023-09-21 12:17 | PM.CNCAR ---
Assessment and Plan Assessment and plan (1) Elevated troponin: Code(s): R79.89 - Other specified abnormal findings of blood chemistry Status: Acute Plan Mildly elevated troponin without significant delta and no dynamic EKG changes and no evidence of acute coronary syndrome likely demand ischemia in the setting of sepsis and pneumonia Pneumoniae With severe sepsis Moderate aortic stenosis Mitral regurgitation Plan Transthoracic echocardiogram Aspirin treatment of underlying infection per primary team History of Present Illness History of Present Illness Consult date/time: 09/21/23 12:17 Reason For Visit: Severe sepsis, PNA, Elevated troponin, ANGIE, Lactic Narrative: present to the hospital with several days of cough and chills associated with weakness. She was also having shortness of breath difficulty performing daily activity. She was admitted to the hospital to pneumonia found to have multi with cardiac troponin. Patient has a history of cardiac murmur and moderate aortic stenosis. Last echocardiogram was 2020. Review of Systems Review of Systems: All systems reviewed & are unremarkable except as noted in HPI and below PMFSH Past Medical History Medical History (Updated 09/21/23 @ 07:35 by Pura Prado DO) Antithrombin III deficiency Aortic stenosis Benign positional vertigo Blind left eye Depression with anxiety Diabetes Diverticulosis of large intestine without hemorrhage Essential hypertension Hx of Torres-Megan toxic epidermal necrolysis overlap syndrome Internal hemorrhoids Personal history of pulmonary embolism Surgical History Surgical History (Updated 09/21/23 @ 07:35 by Pura Prado DO) H/O eye surgery H/O foot surgery History of carpal tunnel release History of injection of tarsal tunnel History of lung surgery Partial left pneumonectomy History of partial hysterectomy Hx of cataract extraction Family History Family History Mother Cerebrovascular accident Father Family history of lung cancer Sibling Acute myocardial infarction Son Diabetes mellitus Social History Social History (Updated 09/21/23 @ 07:38 by Pura Prado DO) Social History: The patient has been for 62 years. She does not use any alcohol and does not smoke. She has 4 children. She retired from the [employer]. Code status: Full code. Healthcare power of corporate associate attorney: Marcus (son) her used to beer Healthcare power of corporate associate attorney but he states that he cannot hear over the phone and she fears that he would be overwhelmed. Smoking status: Never smoker Second hand tobacco smoke exposure: Yes (H/O) Alcohol intake: never Substance use: never Substance use type: does not use Do You Feel Safe in your Home?: Yes Lack of Transportation: No Lack of Food: Never True Current Housing: I Have Housing Concerned About Future Housing: No Difficulty Paying Gas/Electric Bills: No Difficulty Paying for Meds: No Currently Unemployed: No Education: High School Diploma/GED Difficulty w/ Childcare or Family Care: No Living arrangements: with family Occupation/Education: retired Gender identity (if verbalized by the patient): Female Spiritual care concerns: No Meds Home Medications and Allergies Home Medications Medication Instructions Recorded Confirmed Type albuterol sulfate 90 mcg/actuation 2 inh inhalation Q4H PRN Shortness 09/20/23 09/20/23 History aerosol inhaler (Ventolin HFA) Of Breath Or Wheezing aspirin 81 mg tablet,delayed 81 mg PO DAILY 09/20/23 09/20/23 History release Allergies Allergy/AdvReac Type Severity Reaction Status Date / Time amoxicillin Allergy Severe TORRES Verified 09/21/23 01:08 MEGAN SYNDROME ampicillin Allergy Severe Torres Verified 09/21/23 01:08 Johnsons Syndrome clavulanic acid Allergy
--- NOTE | 2023-09-21 13:23 | PM.IMPN ---
Progress Note: A&P Assessment and Plan (1) Abnormal urinalysis: Code(s): R82.90 - Unspecified abnormal findings in urine Status: Acute (2) Acute hypokalemia: Code(s): E87.6 - Hypokalemia Status: Acute (3) Pneumonia: Qualifiers: Laterality: left Lung location: lower lobe of lung Pneumonia type: due to unspecified organism Qualified Code(s): J18.9 - Pneumonia, unspecified organism Code(s): J18.9 - Pneumonia, unspecified organism Status: Acute (4) Lactic acidosis: Code(s): E87.20 - Acidosis, unspecified Status: Acute (5) Elevated troponin: Code(s): R79.89 - Other specified abnormal findings of blood chemistry Status: Acute (6) ANGIE (acute kidney injury): Code(s): N17.9 - Acute kidney failure, unspecified Status: Acute (7) Severe sepsis: Code(s): A41.9 - Sepsis, unspecified organism; R65.20 - Severe sepsis without septic shock Status: Acute (8) Pneumonia: Code(s): J18.9 - Pneumonia, unspecified organism Status: Acute Plan A pleasant 82-year-old female with a past medical history COPD, left partial pneumonectomy in 1973, heart murmur on prior sinus surgery sensitive the ER with worsening cough for 2 weeks. She does have a chronic cough for many years but this is worsening and she has clear to white sputum production. She reports weakness chills and body aches as well. She has lost 40 lb as she has been not taking care of her own health and taking care of her who has chronic kidney disease and chronic indwelling Green catheter and is 89 years old. She reports occasional urinary incontinence and frequency and urgency. UTI 1 month ago which grew E coli that is pansensitive. In [facility] evaluation she was noted to be tachycardiac and tachypneic. Met severe sepsis criteria with leukocytosis lactic acidosis elevated troponin ANGIE and CT evidence of left lower pneumonia. She received 2 L normal saline bolus and empiric antibiotic therapy with Rocephin and azithromycin. She has a allergy listed for cephalosporins but did tolerate the Rocephin. Admitted on 09/20/2023 to IMU. On 09/20 the patient is doing well aside from reporting feeling weak and a poor appetite. For this we will consult PT OT and continue fluid maintenance at a decreased rate of 50 cc of normal saline per hour. Continue ceftriaxone and azithromycin. The acidosis has cleared. ANGIE has resolved. Hypokalemia has resolved. FEN: Normal saline maintenance fluids. Heart healthy diet. GI prophylaxis: Not indicated DVT prophylaxis: Lovenox Lines: Peripheral IV Code Status: Full code Dispo: Stable on telemetry floor. Transfer to [facility] without tele. Subjective Date/time seen: 09/21/23 13:23 Interval history: No acute overnight events. Patient reports she is exhausted from the illness and she is too weak to get out of bed. She reports a cough with sputum production. She denies shortness of breath or fever. He reports a poor appetite and does not think she can eat yet. Review of Systems Review of Systems: All systems reviewed & are unremarkable except as noted in HPI and below (Subjective) Exam Const: General: comfortable and no acute distress Other: A&O x3. Son at bedside. Eyes: Pupils: Equal, round and reactive pupils present Neck: Neck: supple Resp: Effort & Inspection: normal respiratory effort Auscultation: rhonchi (Right) and no wheezes Cardio: Rate: regular rate Rhythm: regular rhythm Heart sounds: Murmur heart sound present (Systolic) GI: GI Palp: Yes Soft to palpation and No Tenderness to palpation present (GI) Extrem: General: no edema Objective Data Vital Signs Vital Signs: Vital Signs - 24 hr 09/20/23 16:29 09/20/23 16:56 09/20/23 17:33 Temperature 98.8 F Pulse Rate 114 H 112 H 109 H Respiratory Rate 35 H 37 H Blood Pressure 118/66 105/60 Pulse Oximetry 94 93 Oxygen Del
--- NOTE | 2023-09-21 15:43 | PC.NURSE ---
This patient, Gifty Garcia, was transferred to [ 348] on 09/21/23 at 1543. Personal belongings sent with patient. Report given to [Bella HOPSON ]. Appropriate documentation sent with patient.
--- NOTE | 2023-09-21 16:06 | PC.NURSE ---
Pt to room 348 at 1545 via wheelchair. Report was taken from Katerin prior to patients transfer
[2023-09-21] MEDS: ACETAMINOPHEN 325 MG TABLET 650 MG PO (20:50)
[2023-09-21] MEDS: AZITHROMYCIN 500 MG/NS 250 ML 500 MG/250 ML BAG 250 MG IVPB (21:54)
[2023-09-22] VITALS (10 sets, daily range): BP systolic 126–145; BP diastolic 67–72; PULSE 59–76; RESP 16–18; TEMP 36.2–37; O2SAT 94–97
[2023-09-22] MEDS: SODIUM CHLORIDE 0.9% IV 1,000 ML 50 ML IV CONT
[2023-09-22] MEDS: LEVALBUTEROL NEB 1.25 MG/3 ML 0.63 MG INHALATION ×4 (02:01→19:42)
[2023-09-22] MEDS: IPRATROPIUM BR 0.02% INH SOLN 0.5 MG/2.5 ML VIAL INHALATION ×4 (02:02→19:42)
[2023-09-22 06:04] LABS: Basophils Percent Auto 0.3 % (0.2-1.2); Eosinophils Absolute Auto 0.1 K/mm3 (0-0.3); Eosinophils Percent Auto 1.2 % (0-4.4); Hematocrit 37.5 % (37.0-47.0); Hemoglobin 11.8 g/dL (12.0-15.0); Immature Granulocyte Percent A 0.9 % (0-0.5); Lymphocytes Absolute Auto 1.02 K/mm3 (0.9-3.2); Lymphocytes Percent Auto 8.8 % (18.3-44.2); Mean Corpuscular HGB Conc 31.5 g/dl (32-36); Mean Corpuscular Hemoglobin 29.9 pg (26-34); Mean Corpuscular Volume 94.9 fl (80-100); Mean Platelet Volume 10.5 fl (7.4-10.4); Monocytes Absolute Auto 0.8 K/mm3 (0.1-0.6); Neutrophils Absolute Auto 9.5 K/mm3 (1.3-6.7); Neutrophils Percent Auto 81.8 % (45.5-73.1); Platelet Count Result 177 k/mm3 (150-375); Red Blood Count 3.95 M/mm3 (4.2-5.4); Red Cell Distribution Width 14.6 % (11.5-14.5); White Blood Count 11.6 K/mm3 (4.5-10.0)
[2023-09-22 06:40] LABS: Anion Gap 7 mmol/L (4-12); Blood Urea Nitrogen 17 mg/dL (7-17); Calcium 8.3 mg/dL (8.4-10.2); Carbon Dioxide 20 mmol/L (22-30); Chloride 112 mmol/L (98-107); Estimated CRCL calculation 53 ml/min; Estimated Glomerular Filt Rate > 60; Glucose 112 mg/dL (65-110); Potassium 3.8 mmol/L (3.4-5.0); Sodium 139 mmol/L (137-145)
[2023-09-22] MEDS: ASPIRIN 81 MG ENTERIC TABLET PO (08:18)
[2023-09-22] MEDS: ENOXAPARIN 40 MG/0.4 ML SYRINGE SUB-Q (08:18)
[2023-09-22 10:25] LABS: Procalcitonin 29.3 ng/mL
--- NOTE | 2023-09-22 12:30 | PM.PNCARD ---
Progress Note: A&P Assessment and Plan (1) Elevated troponin: Code(s): R79.89 - Other specified abnormal findings of blood chemistry Status: Acute Plan Mildly elevated troponin without significant delta and no dynamic EKG changes and no evidence of acute coronary syndrome, likely demand ischemia in the setting of sepsis and pneumonia Pneumonia With severe sepsis Moderate aortic stenosis Mitral regurgitation Plan Transthoracic echocardiogram Aspirin treatment of underlying infection per primary team Subjective Date/time seen: 09/22/23 12:30 Interval history: No acute events Review of Systems Review of Systems: All systems reviewed & are unremarkable except as noted in HPI and below Exam Const: General: comfortable and no acute distress Other: Able to lie flat Resp: Auscultation: clear to auscultation bilaterally and lung sounds not diminished Other: No chest wall tenderness Cardio: Rate: regular rate Rhythm: regular rhythm Heart sounds: no gallops, Murmur heart sound present (ESM at base and pansystolic murmur at mitral) and no rubs GI: GI Palp: Yes Soft to palpation and No Tenderness to palpation present (GI) Auscultation: normal bowel sounds Skin: General skin exam: normal color, rashes and/or lesions noted and no erythema Other: Warm Objective Data Vital Signs Vital Signs: Vital Signs - 24 hr 09/21/23 13:32 09/21/23 13:43 09/21/23 13:54 Temperature Pulse Rate 70 68 Respiratory Rate 18 18 Blood Pressure Pulse Oximetry Oxygen Delivery Room Air Fraction of Inspired Oxygen 09/21/23 16:00 09/21/23 19:41 09/21/23 19:44 Temperature 36.5 C Pulse Rate 66 71 Respiratory Rate 18 18 Blood Pressure 122/54 L Pulse Oximetry 96 94 Oxygen Delivery Room Air Fraction of Inspired Oxygen 21 09/21/23 19:51 09/21/23 22:00 09/22/23 02:02 Temperature 35.7 C L Pulse Rate 69 69 59 L Respiratory Rate 18 16 18 Blood Pressure 130/52 L Pulse Oximetry 95 Oxygen Delivery Fraction of Inspired Oxygen 09/22/23 02:10 09/22/23 06:00 09/22/23 08:32 Temperature 36.2 C L Pulse Rate 66 68 62 Respiratory Rate 18 16 18 Blood Pressure 144/72 H Pulse Oximetry 94 Oxygen Delivery Fraction of Inspired Oxygen 09/22/23 08:33 09/22/23 08:18 Temperature Pulse Rate Respiratory Rate Blood Pressure Pulse Oximetry 94 Oxygen Delivery Room Air Room Air Fraction of Inspired Oxygen 21 Intake/Output Intake/Output: Intake & Output 09/19/23 09/20/23 09/21/23 09/22/23 23:59 23:59 23:59 23:59 Intake Total 2700 1631.7 1150.8 Output Total 600 1500 Balance 2700 1031.7 -349.2 Meds/Results Medications: Active Medications Generic Name Dose Route Start Last Admin Trade Name Freq PRN Reason Stop Dose Admin Acetaminophen 650 mg 09/20/23 21:02 09/21/23 20:50 Acetaminophen 325 Mg Tablet PO 650 mg Q4H PRN Administration Mild Pain (1-3) or Fever Aspirin 81 mg 09/21/23 09:00 09/22/23 08:18 Aspirin 81 Mg Enteric Tablet PO 81 mg DAILY TRISTIN Administration Enoxaparin Sodium 40 mg 09/21/23 09:00 09/22/23 08:18 Enoxaparin 40 Mg/0.4 Ml Syringe SUB-Q 40 mg DAILY TRISTIN Administration Azithromycin 500 mg in 250 mls @ 250 mls/hr 09/21/23 21:00 09/21/23 22:58 Zithromax IVPB Infused Q24H TRISTIN Infusion Ceftriaxone Sodium 1 gm in 50 mls @ 100 mls/hr 09/21/23 20:00 09/21/23 21:22 Rocephin 1 Gm/Ns 50 Ml IVPB Infused Q24H TRISTIN Infusion Sodium Chloride 1,000 mls @ 50 mls/hr 09/21/23 07:15 09/22/23 00:00 Normal Saline Iv IV CONT 50 mls/hr .Q20H TRISTIN Administration Ipratropium [place] 0.5 mg 09/21/23 02:00 09/22/23 08:31 Ipratropium Br 0.02% Inh Soln 0.5 Mg/2.5 Ml Vial INHALATION 0.5 mg Q6HRT TRISTIN Administration Levalbuterol HCl 0.63 mg 09/21/23 02:00 09/22/23 08:31 Levalbuterol Neb 1.25 Mg/3 Ml INHALATION 0.63 mg Q6HRT TRISTIN Administration Perf
--- NOTE | 2023-09-22 15:54 | PM.IMPN ---
Progress Note: A&P Assessment and Plan (1) Abnormal urinalysis: Code(s): R82.90 - Unspecified abnormal findings in urine Status: Acute (2) Acute hypokalemia: Code(s): E87.6 - Hypokalemia Status: Acute (3) Pneumonia: Qualifiers: Laterality: left Lung location: lower lobe of lung Pneumonia type: due to unspecified organism Qualified Code(s): J18.9 - Pneumonia, unspecified organism Code(s): J18.9 - Pneumonia, unspecified organism Status: Acute (4) Lactic acidosis: Code(s): E87.20 - Acidosis, unspecified Status: Acute (5) Elevated troponin: Code(s): R79.89 - Other specified abnormal findings of blood chemistry Status: Acute (6) ANGIE (acute kidney injury): Code(s): N17.9 - Acute kidney failure, unspecified Status: Acute (7) Severe sepsis: Code(s): A41.9 - Sepsis, unspecified organism; R65.20 - Severe sepsis without septic shock Status: Acute (8) Pneumonia: Code(s): J18.9 - Pneumonia, unspecified organism Status: Acute Plan A pleasant 82-year-old female with a past medical history COPD, left partial pneumonectomy in 1973, heart murmur on prior sinus surgery sensitive the ER with worsening cough for 2 weeks. She does have a chronic cough for many years but this is worsening and she has clear to white sputum production. She reports weakness chills and body aches as well. She has lost 40 lb as she has been not taking care of her own health and taking care of her who has chronic kidney disease and chronic indwelling Green catheter and is 89 years old. She reports occasional urinary incontinence and frequency and urgency. UTI 1 month ago which grew E coli that is pansensitive. In [facility] evaluation she was noted to be tachycardiac and tachypneic. Met severe sepsis criteria with leukocytosis lactic acidosis elevated troponin ANGIE and CT evidence of left lower pneumonia. She received 2 L normal saline bolus and empiric antibiotic therapy with Rocephin and azithromycin. She has a allergy listed for cephalosporins but did tolerate the Rocephin. Admitted on 09/20/2023 to IMU. On 09/20 the patient is doing well aside from reporting feeling weak and a poor appetite. For this we will consult PT OT and continue fluid maintenance at a decreased rate of 50 cc of normal saline per hour. Continue ceftriaxone and azithromycin. The acidosis has cleared. ANGIE has resolved. Hypokalemia has resolved. Community-acquired pneumonia -continue ceftriaxone and azithromycin. -wheezing and rhonchi have improved Severe sepsis -lactic acidosis and leukocytosis resolved. Elevated troponin -cardiology consulted. Suggested to continue aspirin. Pending surface echocardiogram -felt due to demand ischemia in the setting of sepsis and pneumonia. Acute hypokalemia -resolved status post replacement Bacteremia -on 09/19 1 bottle growing E coli. -repeat blood cultures on 09/21 at 4:00 p.m. -ceftriaxone switch from 1 g to 2 g q.day. previous E coli urine culture demonstrating varela sensitivity. Recurrent UTI -treated for E coli pansensitive 1 month ago. -repeat urinalysis on admission abnormal. Repeat urine culture growing E coli. ANGIE -resolved. Continue to trend renal function FEN: Saline lock IV. Heart healthy diet. GI prophylaxis: Not indicated DVT prophylaxis: Lovenox Lines: Peripheral IV Code Status: Full code Dispo: Stable on medical floor. Continue working with PT OT Subjective Date/time seen: 09/22/23 15:54 Interval history: No acute overnight events. The patient feels stronger. She denies cough shortness of breath or chest pain. She denies fever. Review of Systems Review of Systems: All systems reviewed & are unremarkable except as noted in HPI and below (Subjective) Exam Const: General: comfortable and no acute distress Other: A&O x3. Eyes: Pupils: Equal, round and reactive
[2023-09-22] MEDS: cefTRIAXone 2 GM/NS 100 ML 2 GM/100 ML BAG IVPB (20:05)
[2023-09-22] MEDS: AZITHROMYCIN 500 MG/NS 250 ML 500 MG/250 ML BAG 250 MG IVPB (20:06)
[2023-09-23] VITALS (9 sets, daily range): BP systolic 139–146; BP diastolic 54–60; PULSE 67–72; RESP 16–18; TEMP 36.6–36.7; O2SAT 96–100
--- NOTE | 2023-09-23 | ECHO_ITS ---
Patient Info Name: Gifty Garcia Age: 82 years : 1940 Gender: Female Ht: 68 in Wt: 188 lbs BSA: 2.04 m2 HR: 69 bpm BP: 139 / 54 mmHg Heart Rhythm: Sinus Rhythm Technical Quality: Fair Exam Date: 09/23/2023 9:42 AM Exam Location: Echo Lab Patient Status: Inpatient Admit Date: 09/20/2023 Staff Ordering Physician: Alex Dawkins MD Supervisor Slitting And Shipping: Alexandria Ponce RDCS Attending Provider: Pura Prado DO Exam Type: CA echo doppler color flow Study Info Indications - aortic stenosis Complete two-dimensional, color flow and Doppler transthoracic echocardiogram is performed. Summary 1. Complete two-dimensional, color flow and Doppler transthoracic echocardiogram is performed. 2. Concentric left ventricular hypertrophy with well-preserved systolic function and grade 1 diastolic noncompliance. 3. Mild aortic valve stenosis valve area 1.3 cm2 with trivial AI. 4. Calcified mitral valve annual. Left Ventricle Left ventricular chamber dimension is normal. Left ventricular systolic function is normal, estimated at 60-65%. There is moderate concentric increased left ventricular wall thickness. The left ventricular diastolic function is grade I diastolic dysfunction. Right Ventricle Right ventricular chamber dimension is normal. Left Atria Left atrial chamber dimension is normal. Right Atria Right atrial chamber dimension is normal. Aortic Valve The aortic valve is trileaflet. There is mild aortic valve sclerosis. There is mild aortic valve stenosis with a peak velocity of 256 cm/s, mean gradient of 16 mmHg, and aortic valve area of 1.2 cm2. Pulmonic Valve The pulmonic valve is not well visualized. There is trace pulmonic regurgitation. Mitral Valve The mitral valve has normal leaflets. The mitral valve annulus is moderately calcified. Tricuspid Valve The tricuspid valve leaflets are normal. Pericardium/Pleural The pericardium appears normal. Aorta The aortic root size at the sinus of Valsalva is normal. Left Ventricular Outflow Tract Name Value Normal LVOT 2D LVOT Diameter 2.0 cm LVOT Doppler LVOT Peak Gradient 3 mmHg LVOT Mean Gradient 2 mmHg LVOT VTI 21 cm LVOT VTI/AV VTI Ratio 0.4 LVOT Stroke Volume 64 ml LVOT CO 3.9 l/min LVOT CI 1.9 l/min/m2 Pulmonic Valve Name Value Normal RVOT Doppler RVOT Peak Gradient 2 mmHg PV Doppler PV Peak Gradient 2 mmHg Mitral Valve Name Value Normal MV Doppler
[2023-09-23] MEDS: IPRATROPIUM BR 0.02% INH SOLN 0.5 MG/2.5 ML VIAL INHALATION ×3 (03:25→14:37)
[2023-09-23] MEDS: LEVALBUTEROL NEB 1.25 MG/3 ML 0.63 MG INHALATION ×3 (03:25→14:37)
[2023-09-23] MEDS: ENOXAPARIN 40 MG/0.4 ML SYRINGE SUB-Q (08:49)
[2023-09-23] MEDS: ASPIRIN 81 MG ENTERIC TABLET PO (08:49)
[2023-09-23 10:46] LABS: Basophils Percent Auto 0.5 % (0.2-1.2); Eosinophils Absolute Auto 0.2 K/mm3 (0-0.3); Eosinophils Percent Auto 2.5 % (0-4.4); Hematocrit 42.1 % (37.0-47.0); Hemoglobin 12.8 g/dL (12.0-15.0); Immature Granulocyte Absolute 0.04 K/mm3 (0.00-0.031); Immature Granulocyte Percent A 0.7 % (0-0.5); Lymphocytes Absolute Auto 1.09 K/mm3 (0.9-3.2); Lymphocytes Percent Auto 18.4 % (18.3-44.2); Mean Corpuscular HGB Conc 30.4 g/dl (32-36); Mean Corpuscular Hemoglobin 29.1 pg (26-34); Mean Corpuscular Volume 95.7 fl (80-100); Mean Platelet Volume 10.3 fl (7.4-10.4); Monocytes Absolute Auto 0.7 K/mm3 (0.1-0.6); Neutrophils Percent Auto 66.9 % (45.5-73.1); Platelet Count Result 189 k/mm3 (150-375); Red Cell Distribution Width 14.5 % (11.5-14.5); White Blood Count 5.9 K/mm3 (4.5-10.0)
[2023-09-23 10:59] LABS: Anion Gap 10 mmol/L (4-12); Blood Urea Nitrogen 15 mg/dL (7-17); Calcium 8.9 mg/dL (8.4-10.2); Carbon Dioxide 21 mmol/L (22-30); Chloride 111 mmol/L (98-107); Estimated CRCL calculation 54 ml/min; Estimated Glomerular Filt Rate > 60; Glucose 126 mg/dL (65-110); Magnesium 2.1 mg/dL (1.6-2.3); Potassium 3.7 mmol/L (3.4-5.0); Sodium 142 mmol/L (137-145)
[2023-09-23 11:43] LABS: Procalcitonin 17.4 ng/mL
--- NOTE | 2023-09-23 15:42 | PM.DS ---
DS: Admitting Diagnosis Discharge Date September 23, 2023 Admitting Diagnosis Pneumonia DS: Discharge Diagnosis Discharge Diagnosis (1) Pneumonia: Qualifiers: Laterality: left Lung location: lower lobe of lung Pneumonia type: due to unspecified organism Qualified Code(s): J18.9 - Pneumonia, unspecified organism Code(s): J18.9 - Pneumonia, unspecified organism Status: Acute (2) Lactic acidosis: Code(s): E87.20 - Acidosis, unspecified Status: Acute (3) Elevated troponin: Code(s): R79.89 - Other specified abnormal findings of blood chemistry Status: Acute DS: Summary Hospital Course Hospital Course: A pleasant 82-year-old female with a past medical history COPD, left partial pneumonectomy in 1973, heart murmur on prior sinus surgery sensitive the ER with worsening cough for 2 weeks.? She does have a chronic cough for many years but this is worsening and she has clear to white sputum production.? She reports weakness chills and body aches as well.? She has lost 40 lb as she has been not taking care of her own health and taking care of her who has chronic kidney disease and chronic indwelling Green catheter and is 89 years old.? She reports occasional urinary incontinence and frequency and urgency.? UTI 1 month ago which grew E coli that is pansensitive.? In [facility] evaluation she was noted to be tachycardiac and tachypneic.? Met severe sepsis criteria with leukocytosis lactic acidosis elevated troponin ANGIE and CT evidence of left lower pneumonia.? She received 2 L normal saline bolus and empiric antibiotic therapy with Rocephin and azithromycin.? She has a allergy listed for cephalosporins but did tolerate the Rocephin.? Admitted on 09/20/2023 to IMU. On 09/20 the patient is doing well aside from reporting feeling weak and a poor appetite.? For this we will consult PT OT and continue fluid maintenance at a decreased rate of 50 cc of normal saline per hour.? Continue ceftriaxone and azithromycin.? The acidosis has cleared.? ANGIE has resolved.? Hypokalemia has resolved. On 09/23/2023 this patient is stable for discharge to home. Her severe sepsis and lactic acidosis have resolved. Discharge with doxycycline 100 mg p.o. b.i.d. for another 3 days. She was found to have Gram-negative bacteremia and is discharged on another 7 days of Bactrim. Patient is aware to return to ER she has worsening or new symptoms. Adverse effects, risks, benefits discussed with the patient to which she understands and agrees. Will also follow-up with her PCP. She was full code during the admission Time Spent with Patient Time attestation: Total time spent providing and/or coordinating discharge services: Exam Const: General: comfortable and no acute distress Other: A&O x3. Eyes: Pupils: Equal, round and reactive pupils present Neck: Neck: supple Resp: Effort & Inspection: normal respiratory effort Cardio: Rate: regular rate Rhythm: regular rhythm Heart sounds: Murmur heart sound present (Systolic) GI: GI Palp: Yes Soft to palpation and No Tenderness to palpation present (GI) Extrem: General: no edema DS: Data Data Completed and Pending Labs on day of discharge: Labs from last 24 hours 09/23/23 10:36 WBC 5.9 RBC 4.40 Hgb 12.8 Hct 42.1 MCV 95.7 MCH 29.1 MCHC 30.4 L RDW 14.5 Plt Count 189 MPV 10.3 Immature Gran % (Auto) 0.7 H Neut % (Auto) 66.9 Lymph % (Auto) 18.4 [place] % (Auto) 11.0 H Eos % (Auto) 2.5 Baso % (Auto) 0.5 Lymph # (Auto) 1.09 [place] # (Auto) 0.7 H Eos # (Auto) 0.2 Baso # (Auto) 0.0 Abs Immat Gran (auto) 0.04 H Absolute Neuts (auto) 4.0 Absolute Nucleated RBC 0.000 Nucleated RBC % 0.0 Sodium 142 Potassium 3.7 Chloride 111 H Carbon Dioxide 21 L Anion Gap 10 BUN 15 Creatinine 0.80 Estim Creat Clear Calc 54 Estimated GFR > 60 Glucose 126 H Calcium 8.9 Magnesium 2.1 Procalcitonin 17.4 Preliminar
== END 2023-09-23 17:28 | disposition home or self-care (01) | DRG 871 ==
LOC: ANHED 20:23 → ANHIMU 21:35 → ANH3MED 09-21 15:41
PROVIDERS: Emergency Medicine; Admitting Provider Internal Medicine; Emergency Provider Physician Assistant; PCP Family Medicine; Visit Provider General Practice
DX: A41.9 Sepsis, unspecified organism (principal); J18.9 Pneumonia, unspecified organism; J44.0 Chronic obstructive pulmonary disease with (acute) lower respiratory infection; E87.21 Acute metabolic acidosis; N17.9 Acute kidney failure, unspecified; I24.89 Other forms of acute ischemic heart disease; N39.0 Urinary tract infection, site not specified; B96.20 Unspecified Escherichia coli [E. coli] as the cause of diseases classified elsewhere; R65.20 Severe sepsis without septic shock; R79.89 Other specified abnormal findings of blood chemistry; I35.0 Nonrheumatic aortic (valve) stenosis; F41.8 Other specified anxiety disorders; E11.9 Type 2 diabetes mellitus without complications; E87.6 Hypokalemia; I10 Essential (primary) hypertension; K57.90 Diverticulosis of intestine, part unspecified, without perforation or abscess without bleeding; I34.0 Nonrheumatic mitral (valve) insufficiency; N39.41 Urge incontinence; Z20.822 Contact with and (suspected) exposure to COVID-19; Z86.711 Personal history of pulmonary embolism; Z90.711 Acquired absence of uterus with remaining cervical stump; Z98.49 Cataract extraction status, unspecified eye
CPT/HCPCS: 36415; 36600; 71045; 71275; 74177; 80048; 80053; 80076; 81001; 82375; 82805; 83050; 83605; 83690; 83735; 83880; 84145; 84484; 85025; 85027; 85380; 87040; 87077; 87086; 87088; 87186; 87637; 93005; 93306; 94640; 96361; 96365; 96366; 97110; 97116; 97161; 97165; 97530; 97535; 99285; A9270; J0456; J0696; J1650; J3475; J3480; J7030; J7050; Q9967

== ENCOUNTER 2024-02-05 08:00 | Outpatient (RCR) | payer MEDICARE, SELFPAY ==
--- NOTE | 2023-12-18 13:40 | OPREHPOC ---
Outpatient Therapy Plan of Care This is a Multidisciplinary Plan of Care that may contain components documented by all disciplines (PT, OT, and ST.) PT Problem 1 PT Problem #1 Knowledge Deficit PT Goal 1 Goal *indep with HEP * good safety awareness with mobility Target Visit 10 PT Problem 2 PT Problem #2 Impaired Vestibular Syste PT Goal 1 Goal pt perform without report of dizziness: 1* standing and turning to R x1 2* standing and turning to L x1 3* roll R/L in bed 4* pick item up off floor Target Visit 10 PT Problem 3 PT Problem #3 Impaired Functional Mobility PT Goal 1 Goal 1* increase strength of R and L LE to improve walking ability: pt perform 20 reps of mat exercises. 2* Tinetti balance score of 26/28 3* pt report NO falls 4* up/down 12 steps with one hand railing, modified indep Target Visit 10
--- NOTE | 2023-12-18 13:40 | PTOPEVAL1 ---
Assessment and note entered by Justine Moralez, PT Evaluation Information Assessment Status Evaluation ICD-10 Condition Codes (PT) Difficulty Walking R26.2,R26.9,Dizziness & Giddiness R42 Onset 2-3 years Subjective Information unsteady with walking- fear of stairs and escalators; weakness of legs and knee pain; vertigo with rolling over in bed at least 4 falls in the past 6 months- stand and turning, pushing a chair and fell backwards; hospitalization in September due to severe UTI; Activity: use cane when out in community/ no device in home, reach furniture or morales; assist with small home tasks; problems on stairs- have laundry in basement- she does not go down stairs, have one hand railing; does laundry; does cooking GOAL: have better balance with walking; dizzy/spinning room: sit to stand too fast, turn with standing, rolling in bed; Reported Pain Level Pain Score 0: Self Report Assessment PT Clinical Summary Gifty has the diagnosis of vestibular rehab, unsteady walking. She reports falls and fear of stairs--does not do into her basement. Dizziness Handicap index score of 54%. Chronic issue with dizziness. She uses a cane for mobility in community. With the evaluation, she was positive for BPPV with L anterior/posterior canal; performed clearing with Eply to the L; she also has weakness of legs with decreased balance and gait skills--Tinetti score of 15/28= high risk for falls. Skilled PT services are indicated for vestibular therapy, LE strength, gait and balance retraining, to decrease risk for falls and improve mobility. Education for HEP and safety with mobility. Plan of Care Interventions Gait Training,Neuro Re-education,Patient/Caregiver Education,Therapeutic Activities,Therapeutic Exercise PT Services Indicated Yes Treatment Frequency and 1-2x/wk for 10 visits Duration
--- NOTE | 2024-02-05 08:39 | PTOPDC ---
Assessment and note entered by Justine Moralez, PT Discharge Report Assessment Status Discharge ICD-10 Condition Codes (PT) Difficulty Walking R26.2,R26.9,Dizziness & Giddiness R42 Onset 2-3 years Subjective Information walking is better, no longer have any vertigo, have not had any falls; use the wheeled walker when going out, but not anything in her house; do ok on stairs, as long as there is a railing. doing the exercises at home OK; feel like ready to be done with therapy. Reported Pain Level Pain Score Self Report Additional Pain Score Comments at rest, no pain in knees, but with exercises and walking, increase to 2/10; reports need to have knee surgery but do not want to do it; Assessment PT Clinical Summary Gifty has received 10 PT sessions. Compared to the initial evaluation: no longer has any dizziness; has not had any falls; is comfortable with doing her front stairs, using the railing; Tinetti balance/gait score improved from 15 to 23/28; increase LE strength and gait skills. Education for HEP and safety with mobility. The goals were partially met. Discharge PT services, she is to continue with her HEP. Plan of Care PT Services Indicated No
== END 2024-02-05 12:39 | disposition home or self-care (01) ==
LOC: ANHPT 08:00
PROVIDERS: PCP Family Medicine; Visit Provider Physician Assistant
DX: H81.12 Benign paroxysmal vertigo, left ear (principal); R26.81 Unsteadiness on feet
CPT/HCPCS: 95992; 97110; 97112; 97116; 97162; 97530